=== PATIENT | male | born 1955 | race Caucasian/White ===

== ENCOUNTER → 2016-06-05 | Outpatient (CLI) | payer MEDICARE, OTHER ==
--- NOTE | 2016-06-05 10:20 | XR ---
EXAMINATION TYPE: XR KUB DATE OF EXAM: 06/05/2016 10:09 AM HISTORY: Pain Comparison: 09/09/2011 Single KUB is submitted for interpretation. Findings: Right renal calculi: None Visualized. Right ureteral calculi: None Visualized. Left renal calculi: None Visualized. Left ureteral calculi: None Visualized. Pelvic calcifications: Several left pelvic calcifications likely reflect phlebolith formation. Corre late clinically. Bowel gas pattern is unremarkable. No free air. No mass effects. IMPRESSION: 1. No definite renal or ureteral calculus identified at this time.
== END | disposition home or self-care (01) ==
LOC: RADXRMAIN 09:49
PROVIDERS: ATTEND Urology
DX: R31.9 Hematuria, unspecified (principal); Z87.442 Personal history of urinary calculi
CPT/HCPCS: 74000

== ENCOUNTER → 2016-07-02 | Outpatient (CLI) | payer MEDICARE, OTHER ==
--- NOTE | 2016-07-02 08:50 | CT ---
EXAMINATION TYPE: CT urogram wo/w con DATE OF EXAM: 07/02/2016 8:17 AM COMPARISON: NONE HISTORY: hematuria, history of renal stone CT DLP: 3153 mGycm CONTRAST: Performed and without and with IV Contrast, patient injected with 100 mL of Omnipaque 300. CT Urography was performed with unenhanced followed by enhanced images of the kidneys, ureters and ur inary bladder. Delayed images were obtained. 3d reconstruction was perfromed at a separate work sta tion. FINDINGS: KIDNEYS/BLADDER: No hydronephrosis. Small 3 mm nonobstructing calculus lower pole left kidney. Right kidney is free of renal calculi. No disctinct renal mass. Urinary bladder is grossly unremarkable. LUNG BASES-: No visible nodule. No infiltrate. LIVER/GB: No calcified gallstones. No space occupying hepatic lesion. Biliary tree is of normal ca liber. PANCREAS: No inflammation. No distinct mass. SPLEEN: No splenic enlargement. No lesion seen. ADRENALS: No nodule. No thickening. BOWEL: Normal appendix. Normal bowel caliber. No inflammation. Scattered sigmoid diverticulosis wit hout diverticulitis. GENITAL ORGANS: No gross abnormality. LYMPH NODES: No greater than 1cm abdominal or pelvic lymph nodes are appreciated. AORTA: No significant abnormality. OSSEOUS STRUCTURES: No significant abnormality is seen. OTHER: No significant additional abnormality is seen. IMPRESSION: 1. Nonobstructing small left renal calculus. No additional findings attributable to the kidneys, uret ers or bladder.
== END | disposition home or self-care (01) ==
LOC: RADCTMAIN 07:00
PROVIDERS: ATTEND Urology
DX: N20.0 Calculus of kidney (principal)
CPT/HCPCS: 74178; 74400; Q9967

== ENCOUNTER → 2017-07-09 | Outpatient (CLI) | payer MEDICARE, OTHER ==
[2017-07-09 12:20] LABS: Appearance,BF Cloudy
[2017-07-09 12:26] LABS: RBC, Body Fluid 985 /uL
[2017-07-09 12:27] LABS: Nucleated Cells, Body Fluid 790 /uL
[2017-07-09 12:31] LABS: Mononuclear WBC,Body Fluid 93 %; Polynuclear WBC,Body Fluid 7 %; Total Cells Counted,Body Fluid 100
== END | disposition home or self-care (01) ==
LOC: LABWHC1 09:33
PROVIDERS: ATTEND Orthopaedic Surgery
DX: Z47.1 Aftercare following joint replacement surgery (principal); M67.864 Other specified disorders of tendon, left knee; M25.462 Effusion, left knee
CPT/HCPCS: 87070; 87075; 87205; 89050; 89060

== ENCOUNTER → 2017-09-09 | Outpatient (CLI) | payer MEDICARE, OTHER ==
[2017-09-09 10:16] LABS: Appearance,Urine Clear (Clear); Basophils % (A) 0 %; Bilirubin,Urine Negative (Negative); Blood,Urine Negative (Negative); Color,Urine Yellow; Eosinophils % (A) 1 %; Glucose,Urine (UA) Negative (Negative); HCT 39.8 % (39.0-53.0); HGB 13.3 gm/dL (13.0-17.5); Ketones,Urine Negative (Negative); Leukocyte Esterase,Urine Negative (Negative); Lymphocytes # (A) 1.5 k/uL (1.0-4.8); Lymphocytes % (A) 22 %; MCH 31.1 pg (25.0-35.0); MCHC 33.4 g/dL (31.0-37.0); Mean Platelet Volume 6.5; Monocytes # (A) 0.3 k/uL (0-1.0); Monocytes % (A) 5 %; Neutrophils # (A) 4.8 k/uL (1.3-7.7); Neutrophils % (A) 71 %; Nitrite,Urine Negative (Negative); PH, Urine 5.5 (5.0-8.0); Platelet Count 162 k/uL (150-450); Protein,Urine Negative (Negative); RBC 4.28 m/uL (4.30-5.90); RDW 13.9 % (11.5-15.5); Specific Gravity,Urine 1.021 (1.001-1.035); Urobilinogen,Urine <2.0 mg/dL (<2.0); WBC 6.8 k/uL (3.8-10.6)
[2017-09-09 10:26] LABS: Partial Thromboplastin Time 23.4 sec (22.0-30.0)
[2017-09-09 10:30] LABS: Anion Gap 11 mmol/L; Blood Urea Nitrogen 26 mg/dL (9-20); Carbon Dioxide 26 mmol/L (22-30); Chloride 105 mmol/L (98-107); Glucose 94 mg/dL (74-99); Potassium 4.1 mmol/L (3.5-5.1); Sodium 142 mmol/L (137-145)
--- NOTE | 2017-09-09 16:22 | XR ---
EXAMINATION TYPE: XR chest 2V DATE OF EXAM: 09/09/2017 COMPARISON: NONE INDICATION: Presurgical clearance TECHNIQUE: Frontal and lateral views of the chest are obtained. FINDINGS: The heart size is normal. The pulmonary vasculature is normal. The lungs are clear. IMPRESSION: 1. No acute pulmonary process.
== END | disposition home or self-care (01) ==
LOC: LABPAT 09:28
PROVIDERS: ATTEND Orthopaedic Surgery Orthopaedic Surgery of the Spine
DX: Z01.818 Encounter for other preprocedural examination (principal); Z01.812 Encounter for preprocedural laboratory examination; M51.26 Other intervertebral disc displacement, lumbar region
CPT/HCPCS: 36415; 71046; 80048; 81003; 85025; 85610; 85730

== ENCOUNTER 2017-09-13 12:40 | Day surgery (SDC) | payer MEDICARE, OTHER ==
[2017-09-06 14:06] VITALS: BMI 27.9
[~2017-09-13 12:40] MED LIST: DEXAMETHASONE SOD PHOSPHATE 10 MG/ML 1 ML VIAL IV ONE; HYDROmorphone 0.5 MG/0.5 ML SYRINGE IVP PRN; LACTATED RINGERS 1,000 ML IV SCH; LIDOCAINE 1% 20 ML VIAL (10MG/ML) FOR IV START INTRADERMA PRN; MIDAZOLAM 2 MG/2 ML VIAL IV PRN; ONDANSETRON 4 MG/2 ML VIAL IVP ONE; ONDANSETRON 4 MG/2 ML VIAL IVP PRN; SCOPOLAMINE 1.5MG/72HR PATCH TRANSDERM ONE; fentaNYL (PF) 50 MCG/ML 2 ML AMP IV PRN
[2017-09-13 13:14] VITALS: RESP 16
[2017-09-13] MEDS: LACTATED RINGERS 1,000 ML IV SCH ×2 (13:30→16:01)
[2017-09-13] MEDS ORDERED: HYDROmorphone (PF) 1 MG/ML ONE (14:17)
[2017-09-13] MEDS ORDERED: fentaNYL (PF) 50 MCG/ML 2 ML AMP ONE (14:17)
[2017-09-13] MEDS ORDERED: SUCCINYLCHOLINE CHLORIDE 100 MG/5 ML SYR IV ONE (14:17)
[2017-09-13] MEDS ORDERED: PROPOFOL 10 MG/ML 20 ML VIAL IV ONE (14:17)
[2017-09-13] MEDS ORDERED: LIDOCAINE 1% INJ 10MG/ML (20 ML MDV) ONE (14:17)
[2017-09-13] MEDS ORDERED: PHENYLEPHRINE-0.9% NACL SYG 1 MG/10 ML SYRINGE ONE (14:17)
[2017-09-13] MEDS ORDERED: MIDAZOLAM 2 MG/2 ML VIAL ONE (14:17)
[2017-09-13] MEDS ORDERED: BACITRACIN 50,000 UNIT, POLYMYXIN B 500,000 UNIT in SODIUM CHLORIDE 0.9% IRRIGATIO 1,00... IRRIGATION ONE (14:30)
[2017-09-13] MEDS ORDERED: LIDOCAINE 0.5%-EPI 1:200,000 50 ML VIAL SQ ONE (15:01)
[2017-09-13] MEDS ORDERED: methylPREDNISolone ACETATE 80 MG/ML 1 ML VIAL MISCELLANE ONE ×2 (15:01→15:17)
[2017-09-13] MEDS ORDERED: GELATIN SPONGE,ABSORB (SMALL) 1 EACH SPONGE TOPICAL ONE (15:01)
[2017-09-13] MEDS ORDERED: THROMBIN (BOVINE) 5,000 UNIT VIAL TOPICAL ONE (15:02)
[2017-09-13] MEDS ORDERED: SODIUM CHLORIDE 0.9% 50 ML with ceFAZolin 2,000 MG IV ONE ×2 (15:04)
[2017-09-13] MEDS ORDERED: DIAZEPAM 5 MG TAB PO PRN (15:36)
[2017-09-13] MEDS ORDERED: BENZOCAINE/MENTHOL LOZENG 1 EACH LOZENGE MUCOUS MEM PRN (15:36)
[2017-09-13] MEDS ORDERED: HYDROmorphone 0.5 MG/0.5 ML SYRINGE IVP PRN ×2 (15:36)
[2017-09-13] MEDS ORDERED: IBUPROFEN 600 MG TAB PO PRN (15:37)
[2017-09-13] MEDS ORDERED: HYDROcodone/APAP 5-325MG 1 EACH TAB PO PRN (15:37)
[2017-09-13] MEDS ORDERED: ONDANSETRON 4 MG/2 ML VIAL IVP PRN (15:37)
[2017-09-13] MEDS ORDERED: SODIUM CHLORIDE 0.9% 1,000 ML IV SCH (15:45)
--- NOTE | 2017-09-13 15:47 | FL ---
Fluoroscopy INDICATION: Pain FINDINGS: Fluoroscopy time: 4 seconds. Images obtained: 2. IMPRESSIONS: 1. Documentation of fluoroscopy.
--- NOTE | 2017-09-13 15:47 | P.OP ---
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 Viera Coffee Blender: Joby ZULETA Anesthesia: General anesthesia Estimated blood loss: approximately 20 mL Complications: None apparent Components implanted: none Disposition: To recovery room in good stable condition. OPERATIVE INDICATIONS The patient has been having issues in their lower back and lower extremities. The patient has been through conservative treatment. he had right lower extremity radiculopathy with a correlated with stenosis at the L2-3 neural foramen. His imaging showed evidence of a disc herniation at L2-3 on the right with extruded fragment. He is not having any prolonged benefit despite aggressive conservative treatment and continues to to have issues over and L3 distribution his right lower extremity. We discussed various treatment options including surgery, and the patient wishes to proceed with surgery We discussed the risk, patient's alternatives and benefits of surgery including but not limited to, risk of bleeding risk of infection, risk of need for further surgery , risk of decreased, loss of motion, loss of function, nerve damage, paralysis, heart attack, blindness and . OPERATIVE SUMMARY After discussing all the risks, patient alternatives and benefits at length, the patient elected to proceed with surgical intervention, signed informed consent, and presented for their procedure. The patient was seen and examined in the preoperative holding area and the surgical site was marked. The patient was given antibiotics and brought to the operating room. The patient was sedated and intubated by anesthesia in standard fashion. The patient was positioned on to the operating room table in a prone position on the appropriate frame which was well-padded and well molded. We were careful to pad any bony prominences and pressure points. We were careful to maintain the patient's cervical spine and good neutral alignment and position throughout. The patient was prepped and draped in a normal standard fashion. An appropriate timeout and keystone protocol performed. We were able to proceed with the surgery. Fluoroscopy was utilized to establish the appropriate level at L2-3 . The local wound area was infiltrated with local anesthetic. An incision was made at the midline longitudinally over the appropriate levels at L2-3 . Dissection was taken down subcutaneously to the level of the fascia which was split midline. Dissection was taken over the lamina. Intraoperative fluoroscopy was taken which showed a marker at the appropriate level at L2-3 . With the appropriate level positively confirmed, we were able to proceed with laminectomy. The wound was copiously irrigated and suctioned dry as had been done periodically throughout the case. I performed a laminectomy with a combination of curettes and a high-speed bur and Kerrison rongeurs. A small medial facetectomy was performed again further access. A partial foraminotomy was also performed. Portions of the ligamentum flavum were taken down to expose the dura and traversing nerve root. there is thickening of the capsule at L2-3 causing significant foraminal encroachment. This combined with the thickened ligamentum flavum was taken down to get good decompression at the neural foramen along with partial foraminotomy open up the neural foramen. There was some motion or along the facet joint at L3 on the right which apparently were presented a lysis. Portions of the facet joint were removed while trying to preserve as much of the facet as possible to maintain stability at L2-3 on the right. I was able get good decompression while attempting to preserve stability. I was able to mobilize the traversing nerve root and gain access to the disc space. Note was made of some disc bulging at the space but no specific herniation. There is some dilation of the blood vessel at the area which was cauterized with bipolar cauterization. The nerve root was freely mobile with no evidence of extruded disc fragment I decided not to go into the disc itself. I decided to preserve the disc structure. There were no extruded fragments noted. There is no evidence of dural tear or leak. Good hemostasis maintained. The wound was copiously irrigated and suctioned dry. Good decompression and discectomy was noted. We were able to proceed with closure. The fascia was closed for a watertight closure. The subcuticular tissue was closed with absorbable suture. The wound was cleaned and dried and dressed with the appropriate dressing. The drapes were broken down. The patient was gently rolled back onto their hospital bed being careful to maintain their cervical spine and good neutral alignment and position. They were woken up by anesthesia, extubated, and brought to the recovery room in good stable condition. The patient will be admitted to the hospital for observation and for appropriate postoperative care, medical management and monitoring. We will continue to follow them closely about the postoperative course.
[2017-09-13 16:50] VITALS: TEMP 97.8
[2017-09-13 19:05] VITALS: BP 108/64; PULSE 76
[2017-09-14] MEDS ORDERED: ceFAZolin IN SWFI 2 GM/20 ML SYRINGE IVP SCH
[2017-09-14] MEDS ORDERED: LEVOTHYROXINE 50 MCG TAB PO SCH (06:30)
== END 2017-09-13 19:20 | disposition home or self-care (01) ==
LOC: OR 12:40 → 5MS5E 15:39 → OR 19:20
PROVIDERS: ATTEND Orthopaedic Surgery Orthopaedic Surgery of the Spine
DX: M48.061 Spinal stenosis, lumbar region without neurogenic claudication (principal); M47.26 Other spondylosis with radiculopathy, lumbar region; M51.16 Intervertebral disc disorders with radiculopathy, lumbar region; E03.9 Hypothyroidism, unspecified; N28.9 Disorder of kidney and ureter, unspecified; Z79.890 Hormone replacement therapy; Z79.891 Long term (current) use of opiate analgesic; Z79.1 Long term (current) use of non-steroidal anti-inflammatories (NSAID); Z79.899 Other long term (current) drug therapy; Z88.6 Allergy status to analgesic agent
CPT/HCPCS: 72020; 63047; J1040; J2405; J0690; 86850; 86900; 86901

== ENCOUNTER → 2017-11-01 | Outpatient (CLI) | payer MEDICARE, OTHER ==
--- NOTE | 2017-11-01 14:58 | NM ---
EXAMINATION TYPE: NM bone 3 phase DATE OF EXAM: 11/01/2017 COMPARISON: NONE HISTORY: Left knee pain for 5 months with fluid drained 3-5 times over last 5 months. History of left knee joint replacement June 14, 2012. Pain, effusion, reactive synovitis all per order. Triple phase bone scintigraphy was performed following the injection of 24.7 mCi Tc 99m MDP. Immedia te images and 4 hours post injection images acquired. FINDINGS: Arterial and soft tissue phase images show increased radiotracer uptake to left knee joint versus opp osite right knee joint particularly the distal femoral component medial aspect. Delayed phase images show asymmetric increased radiotracer uptake surrounding lucent area or metallic prosthesis throughou t the distal femur and proximal tibia. IMPRESSION: Three-phase scintigraphic increase uptake surrounding the left knee prosthesis most promi nent on first 2 phases involving the medial distal femoral component. Periprosthetic infection cannot be excluded.
== END | disposition home or self-care (01) ==
LOC: RADNMMAIN 10:34
PROVIDERS: ATTEND Orthopaedic Surgery
DX: R93.7 Abnormal findings on diagnostic imaging of other parts of musculoskeletal system (principal); Z96.652 Presence of left artificial knee joint
CPT/HCPCS: 78315; A9503

== ENCOUNTER 2018-03-17 11:04 | Emergency (ER) | payer MEDICARE, OTHER ==
[2018-03-17 11:14] VITALS: RESP 16
[2018-03-17] MEDS ORDERED: HYDROcodone/APAP 7.5-325MG 1 EACH TAB PO ONE (12:10)
--- NOTE | 2018-03-17 12:11 | ED ---
Lower Extremity Injury HPI - General Chief Complaint: Extremity Injury, Lower Stated Complaint: left knee pain Time Seen by Provider: 03/17/18 11:23 Source: patient, RN notes reviewed Mode of arrival: ambulatory Limitations: no limitations - History of Present Illness Initial Comments: 62-year-old male presents emergency Department chief complaint of severe left knee pain. Patient states that he had a knee replacement in [address] Ramon. Patient is currently followed by Dr. Cee. He states he was in office one week ago for knee swelling and which they drained his knee. He states the pain is now intensified states that he cannot put any weight on his left knee. Patient states that it is slightly red increased warmth. Patient states his pain with movement also. Patient denies any paresthesias no injury today. He states that feels like his knees going to give out. - Related Data Home Medications Medication Instructions Recorded Confirmed Naproxen Sodium [Aleve] 440 mg PO DAILY PRN 03/17/18 03/17/18 Allergies Allergy/AdvReac Type Severity Reaction Status Date / Time aspirin Allergy Unknown Rash/Hives Verified 03/17/18 11:58 Review of Systems ROS Statement: Those systems with pertinent positive or pertinent negative responses have been documented in the HPI. ROS Other: All systems not noted in ROS Statement are negative. Past Medical History Past Medical History: Deep Vein Thrombosis (DVT), Osteoarthritis (OA), Thyroid Disorder Additional Past Medical History / Comment(s): HERNIATED DISC L2 and L3, hx kidney stones History of Any Multi-Drug Resistant Organisms: None Reported Past Surgical History: Back Surgery, Hernia Repair, Joint Replacement Additional Past Surgical History / Comment(s): LEFT KNEE REPLACEMENT, rt foot hammertoe 2nd digit, FER INGUINAL HERNIAS Past Anesthesia/Blood Transfusion Reactions: Previous Problems w/ Anesthesia Additional Past Anesthesia/Blood Transfusion Reaction / Comment(s): dif waking up Past Psychological History: No Psychological Hx Reported Smoking Status: Never smoker Past Alcohol Use History: Occasional Past Drug Use History: None Reported - Past Family History Mother Family Medical History: Cancer Brother(s) Family Medical History: Cancer General Exam Limitations: no limitations General appearance: alert, in no apparent distress Head exam: Present: atraumatic, normocephalic, normal inspection Eye exam: Present: normal appearance, PERRL, EOMI. Absent: scleral icterus, conjunctival injection, periorbital swelling Respiratory exam: Present: normal lung sounds bilaterally. Absent: respiratory distress, wheezes, rales, rhonchi, stridor Cardiovascular Exam: Present: regular rate, normal rhythm, normal heart sounds. Absent: systolic murmur, diastolic murmur, rubs, gallop, clicks Extremities exam: Present: other (Left knee pain with range of motion, neurovascular intact, moderate swelling, mild erythema increased warmth with palpation the left knee) Course Vital Signs 03/17/18 11:08 Temperature 98.1 F Pulse Rate 97 Respiratory 16 Rate Blood Pressure 132/77 O2 Sat by Pulse 96 Oximetry Medical Decision Making - Medical Decision Making 62-year-old male presents for left knee pain. Patient had recent arthrocentesis. Patient has had increased pain and swelling. Patient does have large joint effusion. Case discussed with on-call orthopedics. They recommend patient follow-up in the morning. There is no clear evidence for infection at this time. It was considered given that he's had recent joint aspiration. Patient has appointment 8:30. Patient we given pain medication for tonight return parameters were discussed. - Lab Data Result diagrams: 03/17/18 13:01 03/17/18 13:01 Lab Results 03/17/18 03/17/18 03/17/18 Range/Units 13: 13:01 13:01 WBC 4.1 (3.8-10.6) k/uL RBC 4.53 (4.30-5.90) m/uL Hgb 14.0 (13.0-17.5) gm/dL Hct 42.3 (39.0-53.0) % MCV 93.5 (80.0-100.0) fL MCH 30.9 (25.0-35.0) pg MCHC 33.1 (31.0-37.0) g/dL RDW 13.3 (11.5-15.5) % Plt Count 153 (150-450) k/uL Neutrophils % 55 % Lymphocytes % 31 % Monocytes % 7 % Eosinophils % 3 % Basophils % 0 % Neutrophils # 2.3 (1.3-7.7) k/uL Lymphocytes # 1.3 (1.0-4.8) k/uL Monocytes # 0.3 (0-1.0) k/uL Eosinophils # 0.1 (0-0.7) k/uL Basophils # 0.0 (0-0.2) k/uL ESR (0-15) mm/hr Sodium 140 (137-145) mmol/L Potassium 4.7 (3.5-5.1) mmol/L Chloride 108 H (98-107) mmol/L Carbon Dioxide 23 (22-30) mmol/L Anion Gap 9 mmol/L BUN 21 H (9-20) mg/dL Creatinine 1.21 (0.66-1.25) mg/dL Est GFR (CKD-EPI)AfAm 75 (>60 ml/min/1.73 sqM) Est GFR (CKD-EPI)NonAf 64 (>60 ml/min/1.73 sqM) Glucose 92 (74-99) mg/dL Plasma Lactic Acid Chuy 0.8 (0.7-2.0) mmol/L Uric Acid 5.4 (3.5-8.5) mg/dL Calcium 9.1 (8.4-10.2) mg/dL Total Bilirubin 0.5 (0.2-1.3) mg/dL AST 27 (17-59) U/L ALT 32 (21-72) U/L Alkaline Phosphatase 44 (38-126) U/L C-Reactive Protein 5.6 (<10.0) mg/L Total Protein 6.8 (6.3-8.2) g/dL Albumin 3.8 (3.5-5.0) g/dL 03/17/18 Range/Units 13:57 WBC (3.8-10.6) k/uL RBC (4.30-5.90) m/uL Hgb (13.0-17.5) gm/dL Hct (39.0-53.0) % MCV (80.0-100.0) fL MCH (25.0-35.0) pg MCHC (31.0-37.0) g/dL RDW (11.5-15.5) % Plt Count (150-450) k/uL Neutrophils % % Lymphocytes % % Monocytes % % Eosinophils % % Basophils % % Neutrophils # (1.3-7.7) k/uL Lymphocytes # (1.0-4.8) k/uL Monocytes # (0-1.0) k/uL Eosinophils # (0-0.7) k/uL Basophils # (0-0.2) k/uL ESR 14 (0-15) mm/hr Sodium (137-145) mmol/L Potassium (3.5-5.1) mmol/L Chloride (98-107) mmol/L Carbon Dioxide (22-30) mmol/L Anion Gap mmol/L BUN (9-20) mg/dL Creatinine (0.66-1.25) mg/dL Est GFR (CKD-EPI)AfAm (>60 ml/min/1.73 sqM) Est GFR (CKD-EPI)NonAf (>60 ml/min/1.73 sqM) Glucose (74-99) mg/dL Plasma Lactic Acid Chuy (0.7-2.0) mmol/L Uric Acid (3.5-8.5) mg/dL Calcium (8.4-10.2) mg/dL Total Bilirubin (0.2-1.3) mg/dL AST (17-59) U/L ALT (21-72) U/L Alkaline Phosphatase (38-126) U/L C-Reactive Protein (<10.0) mg/L Total Protein (6.3-8.2) g/dL Albumin (3.5-5.0) g/dL Disposition Clinical Impression: Effusion of left knee joint Disposition: HOME SELF-CARE Condition: Stable Instructions: Knee Pain (ED) Additional Instructions: Please return to the Emergency Department if symptoms worsen or any other concerns. Is patient prescribed a controlled substance at d/c from ED?: No Referrals: Miko Murguia Jr, DO [Primary Care Provider] - 1-2 days Derick Cee DO [Doctor of Osteopathic Medicine] - 1-2 days Time of Disposition: 16:09
--- NOTE | 2018-03-17 13:02 | XR ---
EXAMINATION TYPE: XR knee complete LT DATE OF EXAM: 03/17/2018 CLINICAL HISTORY: Pain and swelling, history of fluid removed 8 days ago TECHNIQUE: Three views of the left knee are obtained. COMPARISON: Left knee x-ray June 14, 2012. FINDINGS: There is no acute fracture/dislocation evident in left knee. Metallic artifact from the ar throplasty is redemonstrated. No suspicious new surrounding lucency is seen. Soft tissue density sup rapatellar bursa is consistent with recurrent large joint effusion. Posterior vascular calcification is appreciated. IMPRESSION: There is recurrent large suprapatellar joint effusion suspected.
[2018-03-17 13:30] LABS: Basophils % (A) 0 %; Eosinophils # (A) 0.1 k/uL (0-0.7); Eosinophils % (A) 3 %; HCT 42.3 % (39.0-53.0); Lymphocytes # (A) 1.3 k/uL (1.0-4.8); Lymphocytes % (A) 31 %; MCH 30.9 pg (25.0-35.0); MCHC 33.1 g/dL (31.0-37.0); MCV 93.5 fL (80.0-100.0); Monocytes # (A) 0.3 k/uL (0-1.0); Monocytes % (A) 7 %; Neutrophils # (A) 2.3 k/uL (1.3-7.7); Neutrophils % (A) 55 %; Platelet Count 153 k/uL (150-450); RBC 4.53 m/uL (4.30-5.90); RDW 13.3 % (11.5-15.5); WBC 4.1 k/uL (3.8-10.6)
[2018-03-17 13:40] LABS: Albumin 3.8 g/dL (3.5-5.0); C Reactive Protein 5.6 mg/L (<10.0); Calcium 9.1 mg/dL (8.4-10.2); Potassium 4.7 mmol/L (3.5-5.1); Total Bilirubin 0.5 mg/dL (0.2-1.3); Total Protein 6.8 g/dL (6.3-8.2); Uric Acid 5.4 mg/dL (3.5-8.5)
[2018-03-17 16:28] VITALS: BP 122/87; PULSE 91; TEMP 97.6
== END 2018-03-17 16:28 | disposition home or self-care (01) ==
LOC: EC 11:04
DX: M25.462 Effusion, left knee (principal); M19.90 Unspecified osteoarthritis, unspecified site; Z88.6 Allergy status to analgesic agent; Z96.652 Presence of left artificial knee joint; Z86.718 Personal history of other venous thrombosis and embolism
CPT/HCPCS: 36415; 80053; 83605; 84550; 85025; 85652; 86140; 87040; 99283

== ENCOUNTER → 2018-06-02 | Outpatient (CLI) | payer MEDICARE, OTHER ==
[2018-06-02 16:10] LABS: Appearance,Urine Clear (Clear); Bilirubin,Urine Negative (Negative); Blood,Urine Negative (Negative); Color,Urine Yellow; Glucose,Urine (UA) Negative (Negative); Ketones,Urine Negative (Negative); Leukocyte Esterase,Urine Negative (Negative); Nitrite,Urine Negative (Negative); Protein,Urine Negative (Negative); Specific Gravity,Urine 1.017 (1.001-1.035); Urobilinogen,Urine <2.0 mg/dL (<2.0)
== END | disposition home or self-care (01) ==
LOC: LABPAT 15:39
PROVIDERS: ATTEND Orthopaedic Surgery
DX: Z01.818 Encounter for other preprocedural examination (principal); Z01.812 Encounter for preprocedural laboratory examination; M17.12 Unilateral primary osteoarthritis, left knee
CPT/HCPCS: 81003; 87070; 93005

== ENCOUNTER → 2018-06-08 | Outpatient (CLI) | payer MEDICARE, OTHER ==
[2018-06-08 17:42] LABS: Anion Gap 8 mmol/L; Blood Urea Nitrogen 22 mg/dL (9-20); Carbon Dioxide 26 mmol/L (22-30); Chloride 104 mmol/L (98-107); Potassium 4.8 mmol/L (3.5-5.1); Sodium 138 mmol/L (137-145)
== END ==
LOC: LABPAT 16:06
PROVIDERS: ATTEND Orthopaedic Surgery
DX: Z01.812 Encounter for preprocedural laboratory examination (principal)
CPT/HCPCS: 36415; 80051; 82565; 84520

== ENCOUNTER 2018-06-13 10:20 | Inpatient (IN) | payer MEDICARE, OTHER ==
[2018-06-02 08:23] VITALS: BMI 28.3
[~2018-06-13 10:20] MED LIST changes: +ACETAMINOPHEN TAB 500 MG TAB PO ONE; -DEXAMETHASONE SOD PHOSPHATE 10 MG/ML 1 ML VIAL IV ONE; -LACTATED RINGERS 1,000 ML IV SCH; +MELOXICAM 7.5 MG TAB PO ONE; -MIDAZOLAM 2 MG/2 ML VIAL IV PRN; -ONDANSETRON 4 MG/2 ML VIAL IVP PRN; -SCOPOLAMINE 1.5MG/72HR PATCH TRANSDERM ONE; +TRANEXAMIC ACID 1,000 MG in SODIUM CHLORIDE 0.9% 100 ML IVPB ONE; +VANCOMYCIN 1,500 MG in SODIUM CHLORIDE 0.9% 250 ML IVPB ONE; -fentaNYL (PF) 50 MCG/ML 2 ML AMP IV PRN
[2018-06-13] MEDS ORDERED: ROPIVACAINE 246.25 MG, EPINEPHrine 0.5 MG, KETOROLAC 30 MG, cloNIDine HCL/PF 80 MCG, WA... MISCELLANE ONE ×5 (10:46)
[2018-06-13] MEDS: LACTATED RINGERS 1,000 ML IV SCH (10:54)
[2018-06-13] MEDS ORDERED: DEXAMETHASONE SOD PHOS (MDV) 100 MG/10 ML VIAL IVP ONE (10:55)
[2018-06-13] MEDS ORDERED: MIDAZOLAM 2 MG/2 ML VIAL IV ONE (11:08)
[2018-06-13] MEDS: fentaNYL (PF) 50 MCG/ML 2 ML AMP IV ONE ×3 (11:08→16:17)
[2018-06-13] MEDS ORDERED: ROPIVACAINE 1,100 MG, SODIUM CHLORIDE 0.9% 500 ML 330 ML MISCELLANE PRN ×2 (11:34)
--- NOTE | 2018-06-13 11:36 | P.ONQ ---
Anesthesiology Proc Note - PNB - Peripheral Nerve Block Performed Left Adductor Canal Infusion Time Out Performed: Yes Procedure Start Time: 11:08 Indication: Acute Post-Operative Pain Specifically requested for management of pain by DrRodríguez: Derick Cee Sedation Type: Sedate with meaningful contact maintained Preparation: Sterile Prep Position: Supine Catheter Depth at Skin (cm): 6 Catheter: Indwelling Needle Types: Other (see comment) (Pajunk) Needle Size: 100mm (4") Needle Gauge: 18 Technique: Ultrasound Injectate: 0.5% Ropivacaine (see comment for volume) (20cc) Blood Aspirated: No Pain Paresthesia on Injection Noted: No Resistance on Injection: Normal Events: Uneventful and Well Tolerated
[2018-06-13] MEDS ORDERED: hydrOXYzine PAMOATE 25 MG CAP PO PRN (11:59)
[2018-06-13] MEDS ORDERED: ONDANSETRON 4 MG/2 ML VIAL IVP PRN (11:59)
[2018-06-13] MEDS ORDERED: MAGNESIUM HYDROXIDE 2,400 MG/10 ML CUP PO PRN (11:59)
[2018-06-13] MEDS ORDERED: NALOXONE 0.4 MG/ML 1 ML VIAL IV PRN (11:59)
[2018-06-13] MEDS ORDERED: NA PHOS,M-B/NA PHOS,DI-BA 133 ML ENEMA RECTAL PRN (11:59)
[2018-06-13] MEDS ORDERED: HYDROmorphone 1 MG/ML 1 ML SYRINGE IVP PRN (11:59)
[2018-06-13] MEDS ORDERED: HYDROcodone/APAP 5-325MG 1 EACH TAB PO PRN (11:59)
[2018-06-13] MEDS ORDERED: HYDROmorphone 0.5 MG/0.5 ML SYRINGE IVP PRN ×2 (11:59)
[2018-06-13] MEDS ORDERED: BISACODYL 10 MG SUPP RECTAL PRN (11:59)
[2018-06-13] MEDS ORDERED: DIAZEPAM 5 MG TAB PO PRN (11:59)
[2018-06-13] MEDS ORDERED: fentaNYL (PF) 50 MCG/ML 2 ML AMP ONE (13:04)
[2018-06-13] MEDS ORDERED: TRANEXAMIC ACID 1,000 MG/10 ML VIAL ONE (13:04)
[2018-06-13] MEDS ORDERED: SODIUM CHLORIDE 0.9% 100 ML BAG ONE (13:04)
[2018-06-13] MEDS ORDERED: LIDOCAINE 1% INJ 10MG/ML (20 ML MDV) ONE (13:04)
[2018-06-13] MEDS ORDERED: SUCCINYLCHOLINE CHLORIDE 100 MG/5 ML SYR IV ONE (13:04)
[2018-06-13] MEDS ORDERED: MIDAZOLAM 2 MG/2 ML VIAL ONE (13:04)
[2018-06-13] MEDS ORDERED: KETAMINE 10 MG/ML 20 ML VIAL ONE (13:04)
[2018-06-13] MEDS ORDERED: PROPOFOL 10 MG/ML 20 ML VIAL IV ONE (13:04)
[2018-06-13] MEDS ORDERED: ceFAZolin 3,000 MG in SODIUM CHLORIDE 0.9% IRRIGATIO 3,000 ML IRRIGATION ONE (13:53)
[2018-06-13] MEDS ORDERED: LACTATED RINGERS 1,000 ML IV ONE ×2 (14:28)
--- NOTE | 2018-06-13 16:14 | XR ---
EXAMINATION TYPE: XR knee limited LT DATE OF EXAM: 06/13/2018 CLINICAL HISTORY: Postoperative evaluation Two views of the left knee are submitted. Identified are changes of total knee arthroplasty with fem oral and tibial components appearing well seated. Postsurgical soft tissue changes are noted. Align ment is anatomic.
--- NOTE | 2018-06-13 16:53 | P.OP ---
Date of Procedure: 06/13/18 Preoperative Diagnosis: Loosening tibial component left total knee arthroplasty Postoperative Diagnosis: Loosening femoral component left total knee arthroplasty Procedure(s) Performed: Revision left total knee arthroplasty Implants: [employer] Oxinium constrained femoral component size 6, left [employer] Legion press-fit stem 16 mm x 160 mm Jul[employer] Legion 6 mm offset woodwork teacher Jul[employer] Legion posterior wedge, 10 mm 2 Jul[employer] Legion revision tibial baseplate size 6, left [employer] Legion press-fit stem 11 mm x 160 mm Jul[employer]hew size Amee II constrained articular insert, 11 mm, size 5-6 All components were cemented using [place] Simplex P with tobramycin 2 The articulation is Oxinium on polyethylene. Anesthesia: spinal Surgeon: Derick Cee Stave Cutter #1: Viri Ibanez Estimated Blood Loss (ml): 50 Pathology: other (Cultures 2. Frozen section) Condition: stable Disposition: PACU Indications for Procedure: This is a 62-year-old gentleman was at a prior left total knee arthroplasty proximally 3-4 years ago. He continues to have pain and swelling in his knee. Initial workup was negative for infection, but positive for possible loosening of his total knee prosthesis. After discussing the surgical and nonsurgical treatment options with him at length he wishes to proceed with a revision of his left total knee arthroplasty. Informed consent was obtained. Operative Findings: The operative findings are consistent with a grossly loose femoral component. Also, the initial results were negative for infection, as the frozen section was negative for acute inflammation. Description of Procedure: Patient was seen in the preoperative area consent was reviewed and operative site was marked with a skin marker. An adductor canal pain catheter was placed by anesthesia in the preoperative area. Patient was then brought to the operating room and given preoperative antibiotics intravenously. A spinal anesthetic was administered by the anesthesia department. A tourniquet was placed on the upper thigh and the lower extremity was prepped and draped in usual sterile fashion. A gram of transexamic acid was given. A universal timeout was then performed which confirmed the patient's name, surgical site, ALLERGIES, and consent. The lower extremity was then exsanguinated and tourniquet was inflated to 250 mmHg. A standard and anterior midline approach to the knee was performed. The skin and subcutaneous tissue was dissected down to the patellar tendon. A medial parapatellar arthrotomy was then performed. The knee was then extended, the patellar was everted, and the knee was again flexed. The knee was then cultured 2. A frozen section was obtained which was found to be negative for acute inflammation. The prosthesis was then evaluated and the tibial component was found to be grossly stable. The femoral component was found to be grossly loose, was easily removed by hand.. Using a small oscillating saw, the cement implant interface was disrupted and the femoral and tibial components were then removed without difficulty. Next, sequential reaming of the femoral canal was then performed by hand. The femur was then sized and the distal cutting block was then placed in the distal femur was then freshened with a cut. Next the 4-in-1 cutting block was then placed, and set for the appropriate rotation. Anterior posterior chamfer cuts were then performed as well as anterior posterior cuts. The trial femur was then placed with appropriate length stem. Next the box cutting guide was placed in the bone for the box was then reamed and removed. Femoral trial was then removed. Attention was then directed to the tibia. Sequential reaming of the tibial gricel l was then performed with appropriate size. The intramedullary tibial cutting guide was then placed the tibia was then freshened with a minimal resection. The tibia was then sized and the canal was prepared for the stem. The tibial trial was then placed and found to have a good fit. The femoral trial was then placed as well. Next, the insert trials were then sequentially used until the appropriate-sized insert was reached. Knee was able to fully extend and flex to 120 and was stable to varus and valgus and anterior posterior stresses throughout all range of motion. Trials were then removed. The cut surfaces of bone were then irrigated with pulsatile lavage. The posterior structures were injected with the ropivacaine solution. The knee was also irrigated with Irrisept solution. The components were then opened, the cement was mixed, and the components were then cemented in place. The cement was allowed to harden with the knee in full extension. While the cement was hardening, the remaining soft tissues were then injected with a ropivacaine solution, which consisted of 246.25 mg of ropivacaine, 0.5 mg of epinephrine, 30 mg of Toradol, 80 g of clonidine, and 48.45 mL of sterile water, for a total of 100 mL of fluid injected. After the cemented hardened. The tourniquet was released, and hemostasis was obtained. A second gram of transexamic acid was given. The knee was again irrigated. The knee was again taken through range of motion and found to be stable throughout all range of motion of 0-130, and the patella tracked normally. The fascia was then closed with #2 strata fix suture. The subcutaneous tissue was closed with 3-0 Vicryl and 3-0 strata fix. Dermabond glue was used for the skin and placed with the knee in flexion. The patient was placed in a sterile silver dressing. Patient was then transferred to recovery room in stable condition. The assistant principal MERLYN Fierro was required due the complexity surgery and the need for a skilled surgical product sales consultant. She assisted in positioning, draping, retraction, and closure of the wound.
[2018-06-13] MEDS: HYDROcodone/APAP 5-325MG 1 EACH TAB PO PRN (17:37)
[2018-06-13] MEDS: SODIUM CHLORIDE 0.9% 1,000 ML IV SCH (18:26)
[2018-06-13] MEDS: SENNOSIDES-DOCUSATE SODIUM 1 EACH TAB PO SCH (21:07)
[2018-06-13] MEDS ORDERED: VANCOMYCIN 1,500 MG in SODIUM CHLORIDE 0.9% 250 ML IVPB ONE (23:00)
[2018-06-14] MEDS: HYDROcodone/APAP 5-325MG 1 EACH TAB PO PRN ×3 (04:06→20:51)
[2018-06-14] MEDS: SODIUM CHLORIDE 0.9% 1,000 ML IV SCH ×2 (04:18→09:42)
[2018-06-14] MEDS: LACTATED RINGERS 1,000 ML IV SCH (05:48)
--- NOTE | 2018-06-14 07:12 | P.PN ---
Progress Note - Text Progress Note Date: 06/14/18 The patient is status post left adductor canal catheter placement. The catheter was placed for postoperative pain control, status post total [left Knee] arthroplasty. Ropivacaine 0.2% is infusing at[ continuous] mLs per hour. The patient has no complaints of left[ ] lower extremity numbness or weakness. Patient's VAS score is[ 4]-10. Assessment: Patient's adductor canal catheter is in place and working appropriately. Plan: continue infusion and adjust it as needed.
[2018-06-14 08:10] LABS: Basophils % (A) 0 %; Eosinophils # (A) 0.1 k/uL (0-0.7); Eosinophils % (A) 1 %; HCT 36.1 % (39.0-53.0); HGB 11.8 gm/dL (13.0-17.5); Lymphocytes # (A) 1.5 k/uL (1.0-4.8); Lymphocytes % (A) 18 %; MCH 31.1 pg (25.0-35.0); MCHC 32.7 g/dL (31.0-37.0); MCV 95.1 fL (80.0-100.0); Monocytes # (A) 0.5 k/uL (0-1.0); Monocytes % (A) 6 %; Neutrophils # (A) 6.5 k/uL (1.3-7.7); Neutrophils % (A) 75 %; Platelet Count 138 k/uL (150-450); RBC 3.79 m/uL (4.30-5.90); RDW 13.3 % (11.5-15.5); WBC 8.7 k/uL (3.8-10.6)
[2018-06-14] MEDS: RIVAROXABAN 10 MG TAB PO SCH (08:20)
--- NOTE | 2018-06-14 09:27 | P.PN ---
Subjective Progress Note Date: 06/14/18 This is a 62-year-old male who is status post revision left total knee arthroplasty. This is postoperative day #1. Patient is seen and evaluated at bedside with Dr. Derick Cee. Patient states that his pain is well controlled, but he has not worked with physical therapy yet. Patient denies any fever/chills, numbness, weakness, tingling, abdominal pain, shortness of breath or chest pain. Objective - Vital Signs Vital signs: Vital Signs Temp 97.6 F 06/14/18 08:04 Pulse 83 06/14/18 08:04 Resp 16 06/14/18 08:04 BP 105/65 06/14/18 08:04 Pulse Ox 95 06/14/18 08:04 Intake & Output 06/13/18 06/14/18 06/14/18 18:59 06:59 18:59 Intake Total 2050 Output Total 50 Balance 2000 Intake: IV 2050 Output: Estimated Blood Loss 50 Other: Voiding Method Toilet # Voids 2 - Exam Vital signs are stable. Patient is in no acute distress and is alert and oriented 3. Calf is soft and nontender to palpation. Dressing is clean, dry, and intact. Patient has full foot and ankle motion without pain or difficulty. Neurovascular status and circulatory status are intact. - Labs CBC & Chem 7: 06/14/18 07:40 Labs: Abnormal Lab Results - Last 24 Hours (Table) 06/14/18 Range/Units 07:40 RBC 3.79 L (4.30-5.90) m/uL Hgb 11.8 L (13.0-17.5) gm/dL Hct 36.1 L (39.0-53.0) % Plt Count 138 L (150-450) k/uL Microbiology - Last 24 Hours (Table) 06/13/18 14:00 Gram Stain - Preliminary Knee - Left Wound Culture - Preliminary 06/13/18 14:00 Gram Stain - Preliminary Knee - Left Wound Culture - Preliminary 06/13/18 14:00 Anaerobic Culture - Preliminary Knee - Left 06/13/18 14:00 Anaerobic Culture - Preliminary Knee - Left Assessment and Plan Assessment: Status post revision left total knee arthroplasty. History of DVT. Thyroid disorder. (1) Loose total knee arthroplasty Current Visit: Yes Status: Acute Code(s): T84.038A - MECHANICAL LOOSENING OF OTH INTERNAL PROSTHETIC JOINT, INIT; Z96.659 - PRESENCE OF UNSPECIFIED ARTIFICIAL KNEE JOINT SNOMED Code(s): 465875497 Plan: #1 Continue with routine postoperative care and pain control, leave dressing in place for ten days. #2 Anticoagulation with Xarelto. #3 Physical therapy and CPM today. #4 Appreciate input from medicine. #5 Awaiting discharge to rehab.
[2018-06-14] MEDS ORDERED: HYDROmorphone 2 MG TAB PO PRN ×2 (13:20)
[2018-06-14] MEDS ORDERED: HYDROmorphone 4 MG TABLET PO PRN (13:21)
--- NOTE | 2018-06-14 18:56 | P.CONS ---
History of Present Illness - Reason for Consult Consult date: 06/14/18 Medical management - Chief Complaint Pain arthritis knee - History of Present Illness Patient was admitted for elective left total knee arthroplasty Review of Systems Constitutional: Reports as per HPI Ears, nose, mouth and throat: Reports as per HPI Cardiovascular: Reports as per HPI Respiratory: Reports as per HPI Gastrointestinal: Reports as per HPI Genitourinary: Reports as per HPI Musculoskeletal: Reports shooting leg pain Integumentary: Reports as per HPI Neurological: Reports as per HPI Past Medical History Past Medical History: Deep Vein Thrombosis (DVT), Osteoarthritis (OA), Thyroid Disorder Additional Past Medical History / Comment(s): hx HERNIATED DISC L2 and L3, hx kidney stones, hammertoes, History of Any Multi-Drug Resistant Organisms: None Reported Past Surgical History: Back Surgery, Hernia Repair, Joint Replacement Additional Past Surgical History / Comment(s): LEFT KNEE REPLACEMENT, rt foot hammertoe 2nd digit, FER INGUINAL HERNIAS, laminectomy x 2 Past Anesthesia/Blood Transfusion Reactions: Previous Problems w/ Anesthesia Additional Past Anesthesia/Blood Transfusion Reaction / Comm: difficulty waking up with hernia surgery, dvt after back surgery Past Psychological History: No Psychological Hx Reported Smoking Status: Never smoker Past Alcohol Use History: Occasional Past Drug Use History: None Reported - Past Family History Mother Family Medical History: Cancer Additional Family Medical History / Comment(s): breast Brother(s) Family Medical History: Cancer Sister(s) Family Medical History: Cancer Additional Family Medical History / Comment(s): leukemia Medications and Allergies Home Medications Medication Instructions Recorded Confirmed Type Levothyroxine Sodium [Synthroid] 50 mcg PO DAILY 06/02/18 06/13/18 History Naproxen Sodium [Aleve] 220 mg PO Q12HR PRN 06/02/18 06/13/18 History Allergies Allergy/AdvReac Type Severity Reaction Status Date / Time aspirin Allergy Unknown Rash/Hives/ Verified 06/13/18 16:44 itching Physical Exam Osteopathic Statement: *. No significant issues noted on an osteopathic struc tural exam other than those noted in the History and Physical/Consult. Vitals: Vital Signs Temp Pulse Resp BP Pulse Ox 06/14/18 15:20 98.3 F 87 16 122/68 95 06/14/18 08:04 97.6 F 83 16 105/65 95 06/13/18 23:40 98.2 F 73 16 108/62 95 Intake and Output 06/14/18 06/14/18 06/14/18 06:59 14:59 22:59 Intake Total 600 Balance 600 Intake: Oral 600 Other: Voiding Method Toilet # Voids 2 2 General: [Patient awake, alert and oriented times 3. Patient in no acute distress.] HEENT: [PERRL. EOMI. No pharyngeal erythema or exudate.] Neck: [No adenopathy.] Cardiac: [Heart regular in rate and rhythm. No S3. No S4. No clicks, rubs. No murmur.] Lungs: [Clear to auscultation bilaterally.] Abdomen: [No mass. No organomegaly. Bowel sounds presnt and normoactive in all 4 quadrants.] Extremes: dressing left knee clean and dry : [] Musculoskeletal: [No joint erythema, edema or tenderness.] Skin: [No rash.] Neurologic: [No lateralizing deficits. CN II - XII grossly intact.] Lymphatic: [No adenopathy.] Results CBC & Chem 7: 06/14/18 07:40 Labs: Abnormal Lab Results - Last 24 Hours (Table) 06/14/18 Range/Units 07:40 RBC 3.79 L (4.30-5.90) m/uL Hgb 11.8 L (13.0-17.5) gm/dL Hct 36.1 L (39.0-53.0) % Plt Count 138 L (150-450) k/uL Microbiology - Last 24 Hours (Table) 06/13/18 14:00 Gram Stain - Preliminary Knee - Left Wound Culture - Preliminary 06/13/18 14:00 Gram Stain - Preliminary Knee - Left Wound Culture - Preliminary 06/13/18 14:00 Anaerobic Culture - Preliminary Knee - Left 06/13/18 14:00 Anaerobic Culture - Preliminary Knee - Left Assessment and Plan (1) Loose total knee arthroplasty Current Visit: Yes Status: Acute Code(s): T84.038A - MECHANICAL LOOSENING OF OTH INTERNAL PROSTHETIC JOINT, INIT; Z96.659 - PRESENCE OF UNSPECIFIED ARTIFICIAL KNEE JOINT SNOMED Code(s): 340991482 Plan: Status post left total knee Patient doing very well Pain management per orthopedic surgery We'll continue follow closely Time with Patient: Greater than 30
[2018-06-14] MEDS: SENNOSIDES-DOCUSATE SODIUM 1 EACH TAB PO SCH (20:52)
[2018-06-15] MEDS: HYDROcodone/APAP 5-325MG 1 EACH TAB PO PRN ×2 (02:20→08:21)
[2018-06-15] MEDS: LACTATED RINGERS 1,000 ML IV SCH (05:06)
[2018-06-15] MEDS: SODIUM CHLORIDE 0.9% 1,000 ML IV SCH ×2 (08:18→22:53)
[2018-06-15] MEDS: RIVAROXABAN 10 MG TAB PO SCH (08:20)
--- NOTE | 2018-06-15 09:21 | P.PN ---
Subjective Progress Note Date: 06/15/18 This is a 62-year-old male who is status post revision left total knee arthroplasty. This is postoperative day #2. Patient is seen and evaluated at bedside with Dr. Derick Cee. Patient states that his pain is well controlled and he has been up and walking with physical therapy. Patient denies any fever/chills, numbness, weakness, tingling, abdominal pain, shortness of breath or chest pain. Objective - Vital Signs Vital signs: Vital Signs Temp 99.2 F 06/15/18 07:35 Pulse 88 06/15/18 07:35 Resp 16 06/15/18 07:35 BP 102/68 06/15/18 07:35 Pulse Ox 94 L 06/15/18 07:35 Intake & Output 06/14/18 06/15/18 06/15/18 18:59 06:59 18:59 Intake Total 600 100 Balance 600 100 Intake: Oral 600 100 Other: Voiding Method Toilet Toilet # Voids 2 2 - Exam Vital signs are stable. Patient is in no acute distress and is alert and oriented 3. Calf is soft and nontender to palpation. Dressing is clean, dry, and intact. Patient has full foot and ankle motion without pain or difficulty. Neurovascular status and circulatory status are intact. - Labs CBC & Chem 7: 06/14/18 07:40 Labs: Microbiology - Last 24 Hours (Table) 06/13/18 14:00 Gram Stain - Preliminary Knee - Left Wound Culture - Preliminary 06/13/18 14:00 Gram Stain - Preliminary Knee - Left Wound Culture - Preliminary Assessment and Plan Assessment: Status post revision left total knee arthroplasty. History of DVT. Thyroid disorder. (1) Loose total knee arthroplasty Current Visit: Yes Status: Acute Code(s): T84.038A - MECHANICAL LOOSENING OF OTH INTERNAL PROSTHETIC JOINT, INIT; Z96.659 - PRESENCE OF UNSPECIFIED ARTIFICIAL KNEE JOINT SNOMED Code(s): 395300264 Plan: #1 Continue with routine postoperative care and pain control, leave dressing in place for ten days. #2 Anticoagulation with Xarelto. #3 Physical therapy and CPM today. #4 Appreciate input from medicine. #5 Anticipate discharge to rehab .
[2018-06-15] MEDS ORDERED: HYDROcodone/APAP 7.5-325MG 1 EACH TAB PO PRN (09:22)
--- NOTE | 2018-06-15 13:11 | P.PN ---
Subjective Progress Note Date: 06/15/18 Principal diagnosis: Left left total knee arthroplasty Patient is up in bed alert oriented 3 has been up walking and doing quite well plan at this time is to transfer to inpatient rehab I believe tomorrow Objective - Vital Signs Vital signs: Vital Signs Temp 99.2 F 06/15/18 07:35 Pulse 88 06/15/18 07:35 Resp 16 06/15/18 07:35 BP 102/68 06/15/18 07:35 Pulse Ox 94 L 06/15/18 07:35 Intake & Output 06/14/18 06/15/18 06/15/18 18:59 06:59 18:59 Intake Total 600 100 Balance 600 100 Intake: Oral 600 100 Other: Voiding Method Toilet Toilet # Voids 2 2 2 - Exam General: [Patient awake, alert and oriented times 3. Patient in no acute distress.] HEENT: [PERRL. EOMI. No pharyngeal erythema or exudate.] Neck: [No adenopathy.] Cardiac: [Heart regular in rate and rhythm. No S3. No S4. No clicks, rubs. No murmur.] Lungs: [Clear to auscultation bilaterally.] Abdomen: [No mass. No organomegaly. Bowel sounds presnt and normoactive in all 4 quadrants.] Extremes: Left knee dressing clean and dry patient moving quite well with femoral block intact : [] Musculoskeletal: [No joint erythema, edema or tenderness.] Skin: [No rash.] Neurologic: [No lateralizing deficits. CN II - XII grossly intact.] Lymphatic: [No adenopathy.] - Labs CBC & Chem 7: 06/14/18 07:40 Labs: Microbiology - Last 24 Hours (Table) 06/13/18 14:00 Gram Stain - Preliminary Knee - Left Wound Culture - Preliminary 06/13/18 14:00 Gram Stain - Preliminary Knee - Left Wound Culture - Preliminary Assessment and Plan (1) Loose total knee arthroplasty Current Visit: Yes Status: Acute Code(s): T84.038A - MECHANICAL LOOSENING OF OTH INTERNAL PROSTHETIC JOINT, INIT; Z96.659 - PRESENCE OF UNSPECIFIED ARTIFICIAL KNEE JOINT SNOMED Code(s): 873431863 Plan: Status post left total knee Patient doing very well Pain management per orthopedic surgery Patient moving to inpatient rehab tomorrow otherwise doing well Time with Patient: Less than 30
[2018-06-15] MEDS: LEVOTHYROXINE 50 MCG TAB PO SCH (13:16)
[2018-06-15] MEDS: HYDROcodone/APAP 7.5-325MG 1 EACH TAB PO PRN ×2 (15:58→22:52)
[2018-06-15] MEDS: SENNOSIDES-DOCUSATE SODIUM 1 EACH TAB PO SCH (22:52)
[2018-06-16] MEDS: LACTATED RINGERS 1,000 ML IV SCH (05:17)
[2018-06-16] MEDS: HYDROcodone/APAP 7.5-325MG 1 EACH TAB PO PRN ×2 (05:35→13:07)
[2018-06-16] MEDS: LEVOTHYROXINE 50 MCG TAB PO SCH (05:35)
[2018-06-16 08:00] VITALS: BP 109/64; PULSE 78; RESP 12; TEMP 98.7
[2018-06-16 08:24] LABS: Basophils % (A) 0 %; Eosinophils # (A) 0.1 k/uL (0-0.7); Eosinophils % (A) 2 %; HCT 33.1 % (39.0-53.0); Lymphocytes # (A) 0.9 k/uL (1.0-4.8); Lymphocytes % (A) 17 %; MCH 31.5 pg (25.0-35.0); MCHC 33.3 g/dL (31.0-37.0); MCV 94.6 fL (80.0-100.0); Mean Platelet Volume 6.5; Monocytes # (A) 0.4 k/uL (0-1.0); Monocytes % (A) 8 %; Neutrophils % (A) 72 %; Platelet Count 134 k/uL (150-450); RDW 13.2 % (11.5-15.5); WBC 5.6 k/uL (3.8-10.6)
--- NOTE | 2018-06-16 08:37 | P.DS ---
Providers Date of admission: 06/13/18 10:20 Expected date of discharge: 06/16/18 Attending physician: Derick Cee Consults: 06/13/18 11:59 Consult Physician Routine Consulting Provider: Miko Murguia Jr Consult Reason/Comments: medical management Do you want consulting provider notified?: Yes Primary care physician: Miko Murguia - Discharge Diagnosis(es) (1) Loose total knee arthroplasty Current Visit: Yes Status: Acute (2) S/P total knee arthroplasty Current Visit: Yes Status: Acute Hospital Course: This is a 62-year-old male with known history of increasing pain involving his left total knee arthroplasty. The patient presents for evaluation and was found to have suspected loosening of his previous left total knee arthroplasty. After discussion and consideration patient elects to proceed with revision total knee arthroplasty. The patient is seen preoperatively by Dr. Cee and medically cleared for surgery by their primary care physician. Patient is admitted to [facility] on 06/13/2018 for revision total knee arthroplasty. The procedures performed without complication or sequelae. The patient is doing well postoperatively. Labs and vital signs are stable on day of discharge. On day of discharge patient's knee incision is healing well. There is minimal erythema. There is no drainage noted at this time. There is minimal soft tissue swelling to the knee. Patient has full foot and ankle motion without difficulty or pain. Calf is soft and nontender to palpation. Neurovascular status to the left lower extremity is intact. Patient is discharged to rehab in good condition. Opioid start talking form is reviewed and signed at patient bedside. Please see med rec for accurate list of home medications. Plan - Discharge Summary Discharge Rx Participant: No New Discharge Prescriptions: New HYDROcodone/APAP 7.5-325MG [[place] 7.5-325] 1 - 2 tab PO Q6H PRN #56 tab PRN Reason: Pain Sennosides [Senokot] 1 tab PO BID #60 tablet Rivaroxaban [Xarelto] 10 mg PO DAILY #10 tab No Action Levothyroxine Sodium [Synthroid] 50 mcg PO DAILY Naproxen Sodium [Aleve] 220 mg PO Q12HR PRN PRN Reason: Pain Discharge Medication List Levothyroxine Sodium [Synthroid] 50 mcg PO DAILY 06/02/18 [History] Naproxen Sodium [Aleve] 220 mg PO Q12HR PRN 06/02/18 [History] HYDROcodone/APAP 7.5-325MG [[place] 7.5-325] 1 - 2 tab PO Q6H PRN #56 tab 06/16/18 [Rx] Rivaroxaban [Xarelto] 10 mg PO DAILY #10 tab 06/16/18 [Rx] Sennosides [Senokot] 1 tab PO BID #60 tablet 06/16/18 [Rx] Follow up Appointment(s)/Referral(s): Derick Cee DO [Doctor of Osteopathic Medicine] - 2 Weeks Ambulatory/Diagnostic Orders: Continuous Passive Motion (CPM) Machine [DME.AMB1] Time Frame: 3 Weeks, Location: None Selected Activity/Diet/Wound Care/Special Instructions: Weightbearing as tolerated with a walker. CPM 5-6h daily. Leave dressing intact. May be removed by home care nurse or by patient in 10 days. May shower with dressing on. Please follow up with [facility] and call with any questions or concerns, . Discharge Disposition: TRANSFER TO SNF/ECF
[2018-06-16] MEDS: RIVAROXABAN 10 MG TAB PO SCH (09:55)
== END 2018-06-16 13:30 | DRG 468 ==
LOC: 2ORMAIN 10:20 → 4SSUR 15:37
PROVIDERS: ADMIT Orthopaedic Surgery; ATTEND Orthopaedic Surgery
PROC: 0SPW0JZ Removal of Synthetic Substitute from Left Knee Joint, Tibial Surface, Open Approach (ICD-10-PCS; 2018-06-13)
PROC: 0SRW0J9 Replacement of Left Knee Joint, Tibial Surface with Synthetic Substitute, Cemented, Open Approach (ICD-10-PCS; 2018-06-13)
PROC: 0SRU0J9 Replacement of Left Knee Joint, Femoral Surface with Synthetic Substitute, Cemented, Open Approach (ICD-10-PCS; 2018-06-13)
PROC: 0SPU0JZ Removal of Synthetic Substitute from Left Knee Joint, Femoral Surface, Open Approach (ICD-10-PCS; principal; 2018-06-13 12:30)
DX: T84.033A Mechanical loosening of internal left knee prosthetic joint, initial encounter (principal); E03.9 Hypothyroidism, unspecified; N18.9 Chronic kidney disease, unspecified; M19.90 Unspecified osteoarthritis, unspecified site; H91.90 Unspecified hearing loss, unspecified ear; Z79.890 Hormone replacement therapy; Z87.442 Personal history of urinary calculi; Z86.718 Personal history of other venous thrombosis and embolism; Z88.6 Allergy status to analgesic agent; Z80.9 Family history of malignant neoplasm, unspecified; Z80.6 Family history of leukemia
CPT/HCPCS: 85025; 87070; 87075; 87205; 88305; 88331

== ENCOUNTER 2018-12-26 13:11 | Emergency (ER) | payer MEDICARE, OTHER ==
[2018-12-26 13:38] VITALS: BP 95/64; PULSE 105; RESP 18; TEMP 98
[2018-12-26] MEDS ORDERED: DIPH,PERTUS(ACELL)TETVAC-LF 0.5 ML VIAL IM ONE (13:54)
--- NOTE | 2018-12-26 14:05 | ED ---
General Adult HPI - General Chief complaint: Animal Bite Stated complaint: Dog Bite Time Seen by Provider: 12/26/18 13:43 Source: patient, RN notes reviewed Mode of arrival: ambulatory Limitations: no limitations - History of Present Illness Initial comments: Patient is a pleasant 63-year-old male presenting to the emergency department following a dog bite. The bite occurred 2 days ago while he was riding his bike. Dog came out from the house and bit him on provoked. Patient complains of some discomfort in the area. Patient did notice some erythema inferior to the site today. Patient states the area of erythema is more pruritic than painful. Patient is unclear if he could've also been bitten by a bug or not. Patient is unclear last tetanus immunization. Patient is aware over the houses to identify the animal. - Related Data Home Medications Medication Instructions Recorded Confirmed Levothyroxine Sodium [Synthroid] 50 mcg PO DAILY 06/02/18 06/13/18 Naproxen Sodium [Aleve] 220 mg PO Q12HR PRN 06/02/18 06/13/18 Previous Rx's Medication Instructions Recorded HYDROcodone/APAP 7.5-325MG [[place] 1 - 2 tab PO Q6H PRN #56 tab 06/16/18 7.5-325] Rivaroxaban [Xarelto] 10 mg PO DAILY #10 tab 06/16/18 Sennosides [Senokot] 1 tab PO BID #60 tablet 06/16/18 Amoxic-Pot Clav 875-125Mg 1 tab PO Q12HR #20 tablet 12/26/18 [Augmentin 875-125] Allergies Allergy/AdvReac Type Severity Reaction Status Date / Time aspirin Allergy Unknown Rash/Hives/ Verified 12/26/18 13:37 itching Review of Systems ROS Statement: Those systems with pertinent positive or pertinent negative responses have been documented in the HPI. ROS Other: All systems not noted in ROS Statement are negative. Constitutional: Denies: fever Eyes: Denies: eye pain ENT: Denies: ear pain Respiratory: Denies: cough Cardiovascular: Denies: chest pain Endocrine: Denies: fatigue Gastrointestinal: Denies: abdominal pain Genitourinary: Denies: dysuria Musculoskeletal: Denies: back pain Skin: Reports: as per HPI Neurological: Denies: weakness Past Medical History Past Medical History: Deep Vein Thrombosis (DVT), Osteoarthritis (OA), Thyroid Disorder Additional Past Medical History / Comment(s): hx HERNIATED DISC L2 and L3, hx kidney stones, hammertoes, History of Any Multi-Drug Resistant Organisms: MRSA Date of last positivie culture/infection: 2018 MDRO Source:: unknown Past Surgical History: Back Surgery, Hernia Repair, Joint Replacement, Orthopedic Surgery Additional Past Surgical History / Comment(s): LEFT KNEE REPLACEMENT, rt foot hammertoe 2nd digit, FER INGUINAL HERNIAS, laminectomy x 2 Past Anesthesia/Blood Transfusion Reactions: Previous Problems w/ Anesthesia Additional Past Anesthesia/Blood Transfusion Reaction / Comment(s): difficulty waking up with hernia surgery, dvt after back surgery Past Psychological History: No Psychological Hx Reported Smoking Status: Never smoker Past Alcohol Use History: Occasional Past Drug Use History: Marijuana - Past Family History Mother Family Medical History: Cancer Additional Family Medical History / Comment(s): breast Brother(s) Family Medical History: Cancer Sister(s) Family Medical History: Cancer Additional Family Medical History / Comment(s): leukemia General Exam Limitations: no limitations General appearance: alert, in no apparent distress Head exam: Present: normocephalic Eye exam: Present: normal appearance Neck exam: Present: normal inspection Respiratory exam: Present: normal lung sounds bilaterally Cardiovascular Exam: Present: regular rate, normal rhythm Expanded Peripheral pulses: 2+: Posterior Tibialis (L), Dorsalis Pedis (L) GI/Abdominal exam: Present: soft. Absent: tenderness Extremities exam: Present: other (Left posterior thigh with punctures and abrasions and ecchymosis. Area of ecchymosis is approximately 10-12 cm diameter. Approximately 6 cm below this there is a 3 cm diameter area of erythema. No tenderness.) Neurological exam: Present: alert Psychiatric exam: Present: normal affect, normal mood Skin exam: Present: erythema, other (see Extremities exam) Course Vital Signs 12/26/18 13:34 Temperature 98.0 F Pulse Rate 105 H Respiratory 18 Rate Blood Pressure 95/64 O2 Sat by Pulse 95 Oximetry Medical Decision Making - Medical Decision Making Area of erythema does appear to be more consistent with insect bite than infection. Nevertheless is felt to be safer to cover patient with antibiotics with recent dog bite. Patient is strongly made aware of need to follow-up with animal control and forms will be given. This is necessary to watch the animal and make sure there is no sign of rabies. Patient is aware of risk of rabies until the dog is well for 10 days. Disposition Clinical Impression: Dog bite Disposition: HOME SELF-CARE Condition: Stable Instructions (If sedation given, give patient instructions): Animal Bite (ED) Additional Instructions: Make sure animal control forms have been filled out. Please follow-up with animal control to ensure that the dog is not sick for at least 10 days. If this is not done you will need treatment and immunization for rabies. Please follow- up with primary care physician in the next couple of days for recheck. Return for fevers, increased pain, increased redness, worsening symptoms or other concerns. Prescription has been [facility] to [facility] Prescriptions: Amoxic-Pot Clav 875-125Mg [Augmentin 875-125] 1 tab PO Q12HR #20 tablet Is patient prescribed a controlled substance at d/c from ED?: No Referrals: Miko Murguia Jr, [Primary Care Provider] - 1-2 days Time of Disposition: 14:05
== END 2018-12-26 14:59 | disposition home or self-care (01) ==
LOC: EC 13:11
DX: S70.12XA Contusion of left thigh, initial encounter (principal); M19.90 Unspecified osteoarthritis, unspecified site; E07.9 Disorder of thyroid, unspecified; Z86.14 Personal history of Methicillin resistant Staphylococcus aureus infection; Z96.652 Presence of left artificial knee joint; Z79.1 Long term (current) use of non-steroidal anti-inflammatories (NSAID); Z79.890 Hormone replacement therapy; Z88.6 Allergy status to analgesic agent; Z23 Encounter for immunization; W54.0XXA Bitten by dog, initial encounter; Y93.55 Activity, bike riding
CPT/HCPCS: 90471; 90715; 99283

== ENCOUNTER 2019-01-01 08:26 | Inpatient (IN) | payer MEDICARE, OTHER ==
[2019-01-01] MEDS ORDERED: PIPERACILLIN-TAZOBACTAM 3.375 GM in SODIUM CHLORIDE 0.9% 100 ML IVPB STA (08:51)
[2019-01-01] MEDS ORDERED: SODIUM CHLORIDE 0.9% 500 ML 500 ML IV SCH (09:00)
--- NOTE | 2019-01-01 09:11 | ED ---
General Adult HPI - General Chief complaint: Recheck/Abnormal Lab/Rx Stated complaint: dog bite Time Seen by Provider: 01/01/19 08:40 Source: patient, RN notes reviewed Mode of arrival: ambulatory Limitations: no limitations - History of Present Illness Initial comments: Patient is a pleasant 63-year-old male presenting to the emergency department as follow-up from previous dog bite. Patient had episode occur close to week ago now. Patient was seen a couple days after and started on Augmentin. Patient states over the past couple of days he has had increased swelling and pain. Patient has noticed a little bit of warmth. This is at the area of dog bite. Patient did follow-up with animal control and they have contacted family regarding rabies and dog evaluation. Patient denies any fevers. Patient states discomfort is mild at rest however somewhat severe with touching. No history of similar problems previously. Patient did follow-up with his orthopedic doctor after ER visit last week however the symptoms had not yet started at that point. - Related Data Home Medications Medication Instructions Recorded Confirmed Levothyroxine Sodium [Synthroid] 50 mcg PO DAILY 06/02/18 01/01/19 Naproxen Sodium [Aleve] 220 mg PO Q12HR PRN 06/02/18 01/01/19 Previous Rx's Medication Instructions Recorded Amoxic-Pot Clav 875-125Mg 1 tab PO Q12HR #20 tablet 12/26/18 [Augmentin 875-125] Allergies Allergy/AdvReac Type Severity Reaction Status Date / Time aspirin Allergy Unknown Rash/Hives/ Verified 01/01/19 08:51 itching Review of Systems ROS Statement: Those systems with pertinent positive or pertinent negative responses have been documented in the HPI. ROS Other: All systems not noted in ROS Statement are negative. Constitutional: Denies: fever Eyes: Denies: eye pain ENT: Denies: ear pain Respiratory: Denies: cough Cardiovascular: Denies: chest pain Endocrine: Denies: fatigue Gastrointestinal: Denies: abdominal pain Genitourinary: Denies: dysuria Musculoskeletal: Denies: back pain Skin: Reports: as per HPI, rash Neurological: Denies: weakness Past Medical History Past Medical History: Deep Vein Thrombosis (DVT), Osteoarthritis (OA), Thyroid Disorder Additional Past Medical History / Comment(s): hx HERNIATED DISC L2 and L3, hx kidney stones, hammertoes, History of Any Multi-Drug Resistant Organisms: MRSA Date of last positivie culture/infection: 2019 MDRO Source:: unknown Past Surgical History: Back Surgery, Hernia Repair, Joint Replacement, Orthopedic Surgery Additional Past Surgical History / Comment(s): LEFT KNEE REPLACEMENT, rt foot hammertoe 2nd digit, FER INGUINAL HERNIAS, laminectomy x 2 Past Anesthesia/Blood Transfusion Reactions: Previous Problems w/ Anesthesia Additional Past Anesthesia/Blood Transfusion Reaction / Comment(s): difficulty waking up with hernia surgery, dvt after back surgery Past Psychological History: No Psychological Hx Reported Smoking Status: Never smoker Past Alcohol Use History: Occasional Past Drug Use History: Marijuana - Past Family History Mother Family Medical History: Cancer Additional Family Medical History / Comment(s): breast Brother(s) Family Medical History: Cancer Sister(s) Family Medical History: Cancer Additional Family Medical History / Comment(s): leukemia General Exam Limitations: no limitations General appearance: alert, in no apparent distress Head exam: Present: normocephalic Eye exam: Present: normal appearance Neck exam: Present: normal inspection Respiratory exam: Present: normal lung sounds bilaterally Cardiovascular Exam: Present: regular rate, normal rhythm GI/Abdominal exam: Present: soft. Absent: tenderness Extremities exam: Present: other (left posterior mid thigh with approximately 7 cm area of swelling and warmth and tenderness. There is some minimal erythema. There is puncture wound with erythema.) Neurological exam: Present: alert Psychiatric exam: Present: normal affect, normal mood Skin exam: Present: erythema Course Vital Signs 01/01/19 08:35 Temperature 98.0 F Pulse Rate 88 Respiratory 18 Rate Blood Pressure 108/73 O2 Sat by Pulse 96 Oximetry Medical Decision Making - Medical Decision Making case discussed in detail with Dr. Lambert who will admit with orthopedic and ID consult. patient updated. Area of involvement left posterior thigh appears to be cellulitic however there is some fluid collection and has an appearance that he could turn into an abscess within the next day or 2. Disposition Clinical Impression: Dog bite, Cellulitis Disposition: ADMITTED IP TO THIS HOSP Is patient prescribed a controlled substance at d/c from ED?: No Referrals: Miko Murguia Jr, DO [Primary Care Provider] - 1-2 days Decision Time: 09:30
[2019-01-01] MEDS ORDERED: NALOXONE 0.4 MG/ML 1 ML VIAL IV PRN (09:30)
[2019-01-01 09:43] LABS: ALT 17 U/L (21-72); AST 27 U/L (17-59); African American GFR (CKD) >90 (>60 ml/min/1.73 sqM); Albumin 3.8 g/dL (3.5-5.0); Alkaline Phosphatase 51 U/L (38-126); Anion Gap 10 mmol/L; Blood Urea Nitrogen 19 mg/dL (9-20); Calcium 8.8 mg/dL (8.4-10.2); Carbon Dioxide 21 mmol/L (22-30); Chloride 108 mmol/L (98-107); Glucose 153 mg/dL (74-99); Potassium 4.2 mmol/L (3.5-5.1); Sodium 139 mmol/L (137-145); Total Bilirubin 0.8 mg/dL (0.2-1.3)
[2019-01-01 09:47] LABS: Partial Thromboplastin Time 23.6 sec (22.0-30.0); Prothrombin Time 10.4 sec (9.0-12.0)
[2019-01-01 10:05] LABS: Basophils % (A) 1 %; Eosinophils # (A) 0.1 k/uL (0-0.7); Eosinophils % (A) 2 %; HCT 40.9 % (39.0-53.0); HGB 14.4 gm/dL (13.0-17.5); Lymphocytes # (A) 1.1 k/uL (1.0-4.8); Lymphocytes % (A) 19 %; MCH 31.6 pg (25.0-35.0); MCHC 35.1 g/dL (31.0-37.0); MCV 90.1 fL (80.0-100.0); Mean Platelet Volume 6.2; Monocytes # (A) 0.4 k/uL (0-1.0); Monocytes % (A) 6 %; Neutrophils # (A) 4.2 k/uL (1.3-7.7); Neutrophils % (A) 71 %; Platelet Count 149 k/uL (150-450); RBC 4.54 m/uL (4.30-5.90); RDW 13.6 % (11.5-15.5); WBC 5.9 k/uL (3.8-10.6)
[2019-01-01] MEDS: SODIUM CHLORIDE 0.9% 1,000 ML IV SCH ×2 (11:11→22:14)
[2019-01-01] MEDS ORDERED: VANCOMYCIN IV PER PHARMACY 1 EACH MISC MISCELLANE PRN (15:12)
--- NOTE | 2019-01-01 15:52 | US ---
EXAMINATION TYPE: US extremity nonvasc mass LT DATE OF EXAM: 01/01/2019 COMPARISON: NONE CLINICAL HISTORY: left post thigh swelling ?abscess. Patient bitten by dog. [place] of skin redness wi th central portion where dog bite noted on posterior left thigh; Assess for abscess Left posterior thigh US: complex fluid area = 5.0 x 4.8 x 1.3cm noted posterior to dog bite. IMPRESSION: There is elongated complex fluid collection in the area of concern consistent with an ab scess. Also consider hematoma.
[2019-01-01] MEDS ORDERED: PIPERACILLIN-TAZOBACTAM 3.375 GM in SODIUM CHLORIDE 0.9% 100 ML IVPB SCH (16:00)
[2019-01-01] MEDS: AMPICILLIN-SULBACTAM 3 GM in SODIUM CHLORIDE 0.9% 100 ML IVPB SCH ×2 (18:03→23:31)
[2019-01-01] MEDS: VANCOMYCIN 1,750 MG in SODIUM CHLORIDE 0.9% 500 ML 500 ML IVPB SCH (19:05)
[2019-01-01] MEDS ORDERED: HYDROcodone/APAP 5-325MG 1 EACH TAB PO PRN (21:57)
[2019-01-01] MEDS: HYDROcodone/APAP 5-325MG 1 EACH TAB PO PRN (22:10)
[2019-01-01] MEDS: MELATONIN 3 MG TABLET PO SCH (22:10)
--- NOTE | 2019-01-01 23:25 | P.CONS ---
History of Present Illness - Reason for Consult Consult date: 01/01/19 left thigh dog bite cellulitis Requesting physician: Miko Murguia Jr - Chief Complaint left thigh pain , swelling and redness x few days - History of Present Illness Patient is a 63-year-old male presenting to the ER at [facility] with worsening pain swelling redness to the left posterior thigh that has been getting worse for the last few days to week patient apparently did have a dog bite to the left posterior thigh more than a week ago patient subsequently was evaluated in this ER on December 26, 2018 and the patient was treated with oral Bactrim DS however the patient seen with the last 3 days the left posterior thigh area has become more painful pain described to be more of a throbbing dull aching and worse with pressure with intensity almost 7-8 out of 10 and no radiation the area has felt warm currently do not have any open area or any drainage patient did have some chills but denies high-grade fever with the symptoms and the patient was evaluated by the ER physician on arrival to the ER the patient has been afebrile the patient white count was normal as well patient has been started on Zosyn admitted to the hospital infectious disease was consulted for further recommendation regarding antibiotic therapy Review of Systems CONSTITUTIONAL: Positive for weakness. low grade Fever EYES: No complaint. ENT:No complaint. RESPIRATORY: No complaint. CARDIOVASCULAR: No complaint. GENITOURINARY: No complaint. GASTROINTESTINAL: No complaint. MUSCULOSKELETAL: as per history of present illness INTEGUMENTARY as per history of present illness PSYCHOLOGICAL: No complaint. ENDOCRINE: No complaint. NEUROLOGIC: No complaint. All systems: negative Constitutional: Denies chills, Denies fever Eyes: denies blurred vision, denies pain Ears, nose, mouth and throat: Denies headache, Denies sore throat Cardiovascular: Denies chest pain, Denies shortness of breath Respiratory: Denies cough Gastrointestinal: Denies abdominal pain, Denies diarrhea, Denies nausea, Denies vomiting Musculoskeletal: Denies myalgias Integumentary: Denies pruritus, Denies rash Neurological: Denies numbness, Denies weakness Psychiatric: Denies anxiety, Denies depression Endocrine: Denies fatigue, Denies weight change Past Medical History Past Medical History: Deep Vein Thrombosis (DVT), Osteoarthritis (OA), Thyroid Disorder Additional Past Medical History / Comment(s): hx HERNIATED DISC L2 and L3, hx kidney stones, hammertoes, History of Any Multi-Drug Resistant Organisms: MRSA Year Discovered:: 2019 MDRO Source:: unknown Past Surgical History: Back Surgery, Hernia Repair, Joint Replacement, Orthopedic Surgery Additional Past Surgical History / Comment(s): LEFT KNEE REPLACEMENT, rt foot hammertoe 2nd digit, FER INGUINAL HERNIAS, laminectomy x 2 Past Anesthesia/Blood Transfusion Reactions: Previous Problems w/ Anesthesia Additional Past Anesthesia/Blood Transfusion Reaction / Comm: difficulty waking up with hernia surgery, dvt after back surgery Past Psychological History: No Psychological Hx Reported Smoking Status: Never smoker Past Alcohol Use History: Occasional Past Drug Use History: Marijuana - Past Family History Mother Family Medical History: Cancer Additional Family Medical History / Comment(s): breast Brother(s) Family Medical History: Cancer Sister(s) Family Medical History: Cancer Additional Family Medical History / Comment(s): leukemia Medications and Allergies Home Medications Medication Instructions Recorded Confirmed Type Levothyroxine Sodium [Synthroid] 50 mcg PO DAILY 06/02/18 01/01/19 History Naproxen Sodium [Aleve] 220 mg PO Q12HR PRN 06/02/18 01/01/19 History Amoxic-Pot Clav 875-125Mg 1 tab PO Q12HR #20 tablet 12/26/18 01/01/19 Rx [Augmentin 875-125] Allergies Allergy/AdvReac Type Severity Reaction Status Date / Time aspirin Allergy Unknown Rash/Hives/ Verified 01/01/19 08:51 itching Physical Exam Vitals: Vital Signs Temp Pulse Resp BP Pulse Ox 01/01/19 08:35 98.0 F 88 18 108/73 96 Intake and Output 12/31/18 01/01/19 01/01/19 22:59 06:59 14:59 Other: Weight 97.522 kg GENERAL DESCRIPTION: Middle-aged male lying in bed, no distress. No tachypnea or accessory muscle of respiration use. HEENT: Shows Pallor , no scleral icterus. Oral mucous membrane is dry. No pharyngeal erythema or thrush NECK: Trachea central, no thyromegaly. LUNGS: Unlabored breathing. Clear to auscultation anteriorly. No wheeze or crackle. HEART: S1, S2, regular rate and rhythm. No loud murmur ABDOMEN: Soft, no tenderness , guarding or rigidity, no organomegaly EXTREMITIES: left posterior thigh with area of flatulence, warm and tender to touch SKIN: No rash, no masses palpable. NEUROLOGICAL: The patient is awake, alert, oriented x3, mood and affect normal. Results CBC & Chem 7: 01/01/19 09:05 01/01/19 09:05 Labs: Abnormal Lab Results - Last 24 Hours (Table) 01/01/19 01/01/19 Range/Units 09:05 09:05 Plt Count 149 L (150-450) k/uL Chloride 108 H (98-107) mmol/L Carbon Dioxide 21 L (22-30) mmol/L Glucose 153 H (74-99) mg/dL ALT 17 L (21-72) U/L Assessment and Plan Assessment: Patient presented to the hospital with right posterior thigh pain swelling redness in this patient who did have a negative of fluctuation on the left posterior thigh which is warm and tender to touch with concern for an abscess failing outpatient oral Augmentin therapy with concern for possible gram- positive skin brendon of the patient (1) Abscess of left thigh Current Visit: Yes Status: Acute Code(s): L02.416 - CUTANEOUS ABSCESS OF LEFT LOWER LIMB SNOMED Code(s): 87133587923659576 (2) Dog bite Current Visit: Yes Status: Acute Code(s): W54.0XXA - BITTEN BY DOG, INITIAL ENCOUNTER SNOMED Code(s): 130470212 Plan: 1. We will obtain ultrasound of the left posterior thigh to confirm evidence of an abscess that may need to be drained surgically with the fluid sent for cultures both aerobic and anaerobic 2- discontinue Zosyn 3-start the patient Unasyn 3 g every 6 hours and vancomycin pharmacy to dose with target trough 15 on watching his kidney function and Vanco trough closely We will follow on clinical condition and cultures to further adjust medication if needed Thank you for this consultation will follow this patient along with you Time with Patient: Greater than 30
[2019-01-02] MEDS: AMPICILLIN-SULBACTAM 3 GM in SODIUM CHLORIDE 0.9% 100 ML IVPB SCH ×4 (05:37→23:18)
[2019-01-02 07:00] LABS: Basophils % (A) 1 %; Eosinophils # (A) 0.2 k/uL (0-0.7); Eosinophils % (A) 4 %; HCT 37.5 % (39.0-53.0); HGB 12.7 gm/dL (13.0-17.5); Lymphocytes # (A) 1.4 k/uL (1.0-4.8); Lymphocytes % (A) 35 %; MCH 31.2 pg (25.0-35.0); MCHC 33.8 g/dL (31.0-37.0); MCV 92.1 fL (80.0-100.0); Mean Platelet Volume 6.2; Monocytes # (A) 0.3 k/uL (0-1.0); Monocytes % (A) 8 %; Neutrophils % (A) 51 %; Platelet Count 149 k/uL (150-450); RBC 4.07 m/uL (4.30-5.90); RDW 13.6 % (11.5-15.5); WBC 3.9 k/uL (3.8-10.6)
[2019-01-02] MEDS: VANCOMYCIN 1,750 MG in SODIUM CHLORIDE 0.9% 500 ML 500 ML IVPB SCH ×2 (07:00→18:16)
[2019-01-02] MEDS: SODIUM CHLORIDE 0.9% 1,000 ML IV SCH ×2 (07:01→20:13)
[2019-01-02 07:07] LABS: African American GFR (CKD) >90 (>60 ml/min/1.73 sqM); Anion Gap 5 mmol/L; Blood Urea Nitrogen 17 mg/dL (9-20); Calcium 8.4 mg/dL (8.4-10.2); Carbon Dioxide 29 mmol/L (22-30); Chloride 106 mmol/L (98-107); Glucose 96 mg/dL (74-99); Potassium 4.3 mmol/L (3.5-5.1); Sodium 140 mmol/L (137-145)
[2019-01-02 07:37] LABS: C Reactive Protein 26.1 mg/L (<10.0)
--- NOTE | 2019-01-02 08:36 | P.CNOR ---
<Joby Saunders - Last Filed: 01/02/19 08:33> History of Present Illness - HPI Consult date: 01/02/19 Requesting physician: Lalo Villalta Consult reason: other (Left posterior thigh abscess status post dog bite) History of present illness: The patient is a very pleasant 63-year-old male who is well-known to her p ractice who is seen and examined at bedside by Dr. Bud Viera and myself. Patient states 1 week ago after cutting the grass he was [place] the [place] when he was bitten by a pit bull. At that time he presented to the emergency department for evaluation. He was started on oral antibiotics. Since that time he has not had any improvement of the wound site. He states he was a bit on the left posterior thigh. Since that time he has been experiencing increased swelling, erythema, and pain at the left posterior thigh. He presented to the emergency department yesterday for further evaluation. He was admitted for cellulitis of the left lower extremity. He was seen and examined b y infectious disease who ordered an ultrasound of the left lower extremity which should show evidence of a fluid collection consistent with abscess. He has been started on vancomycin and Unasyn by infectious disease. He has been able to ambulate since his admittance to the hospital. He is currently nothing by mouth status in anticipation for surgical intervention. Patient does have a medical h istory which includes DVT, osteoarthritis, thyroid disorder, left total knee arthroplasty, and lumbar laminectomy. Past Medical History Past Medical History: Deep Vein Thrombosis (DVT), Osteoarthritis (OA), Thyroid Disorder Additional Past Medical History / Comment(s): hx HERNIATED DISC L2 and L3, hx kidney stones, hammertoes, History of Any Multi-Drug Resistant Organisms: MRSA Year Discovered:: 2019 MDRO Source:: unknown Past Surgical History: Back Surgery, Hernia Repair, Joint Replacement, Orthopedic Surgery Additional Past Surgical History / Comment(s): LEFT KNEE REPLACEMENT, rt foot hammertoe 2nd digit, FER INGUINAL HERNIAS, laminectomy x 2 Past Anesthesia/Blood Transfusion Reactions: Previous Problems w/ Anesthesia Additional Past Anesthesia/Blood Transfusion Reaction / Comm: difficulty waking up with hernia surgery, dvt after back surgery Past Psychological History: No Psychological Hx Reported Smoking Status: Never smoker Past Alcohol Use History: Occasional Past Drug Use History: Marijuana - Past Family History Mother Family Medical History: Cancer Additional Family Medical History / Comment(s): breast Brother(s) Family Medical History: Cancer Sister(s) Family Medical History: Cancer Additional Family Medical History / Comment(s): leukemia Medications and Allergies Home Medications Medication Instructions Recorded Confirmed Type Levothyroxine Sodium [Synthroid] 50 mcg PO DAILY 06/02/18 01/01/19 History Naproxen Sodium [Aleve] 220 mg PO Q12HR PRN 06/02/18 01/01/19 History Amoxic-Pot Clav 875-125Mg 1 tab PO Q12HR #20 tablet 12/26/18 01/01/19 Rx [Augmentin 875-125] Allergies Allergy/AdvReac Type Severity Reaction Status Date / Time aspirin Allergy Unknown Rash/Hives/ Verified 01/01/19 08:51 itching Physical Examination Physical exam: Patient is awake, alert, and oriented 3 Vital signs stable Good chest excursion with deep inspiration and expiration Examination of the left posterior thigh shows a large area of cellulitis covering the entire posterior left thigh Evidence of increased erythema measuring approximately 5 cm round around the site of the dog bite Evidence of a scabbed over wound from dog bite Pain with palpation around the dog bite site Evidence of increased swelling and fluid collection around the dog bite site Evidence of a well-healed incision over the left anterior knee Active range of motion of the left lower extremity without difficulty Evidence of a tattoo over the left lower extremity Neurovascularly intact Results Pertinent studies: Left lower extremity ultrasound: Complex fluid area measuring 5 cm x 4.8 cm x 1.3 cm the posterior thigh with elongated fluid complex collection consistent with abscess. Also consider hematoma - Labs Labs: Abnormal Lab Results - Last 24 Hours (Table) 01/01/19 01/01/19 01/02/19 Range/Units 09:05 09:05 06:27 RBC 4.07 L (4.30-5.90) m/uL Hgb 12.7 L (13.0-17.5) gm/dL Hct 37.5 L (39.0-53.0) % Plt Count 149 L 149 L (150-450) k/uL Chloride 108 H (98-107) mmol/L Carbon Dioxide 21 L (22-30) mmol/L Glucose 153 H (74-99) mg/dL ALT 17 L (21-72) U/L C-Reactive Protein (<10.0) mg/L 01/02/19 Range/Units 06:27 RBC (4.30-5.90) m/uL Hgb (13.0-17.5) gm/dL Hct (39.0-53.0) % Plt Count (150-450) k/uL Chloride (98-107) mmol/L Carbon Dioxide (22-30) mmol/L Glucose (74-99) mg/dL ALT (21-72) U/L C-Reactive Protein 26.1 H (<10.0) mg/L H & H 01/01/19 01/02/19 Range/Units 09:05 06:27 Hgb 14.4 12.7 L (13.0-17.5) gm/dL Hct 40.9 37.5 L (39.0-53.0) % Coagulation 01/01/19 Range/Units 09:05 INR 1.0 (<1.2) Result Diagrams: 01/02/19 06:27 01/02/19 06:27 Assessment and Plan Assessment: Assessment: Left posterior thigh abscess Left posterior thigh cellulitis Left thigh pain Status post dog bite 1 week ago History of DVT, osteoarthritis, and thyroid disorder Status post left total knee arthroplasty June 2018 History of previous lumbar laminectomy (1) History of total knee arthroplasty Current Visit: Yes Status: Acute Code(s): Z96.659 - PRESENCE OF UNSPECIFIED ARTIFICIAL KNEE JOINT SNOMED Code(s): 8742279083545 (2) History of lumbar laminectomy Current Visit: Yes Status: Acute Code(s): Z98.890 - OTHER SPECIFIED POSTPROCEDURAL STATES SNOMED Code(s): 79735922761052888 (3) History of osteoarthritis Current Visit: Yes Status: Acute Code(s): Z87.39 - PERSONAL HISTORY OF DISEASES OF THE MS SYS AND CONN TISS SNOMED Code(s): 451745003 (4) History of DVT (deep vein thrombosis) Current Visit: Yes Status: Acute Code(s): Z86.718 - PERSONAL HISTORY OF OTHER VENOUS THROMBOSIS AND EMBOLISM SNOMED Code(s): 577709929 (5) Thyroid disorder Current Visit: Yes Status: Acute Code(s): E07.9 - DISORDER OF THYROID, UNSPECIFIED SNOMED Code(s): 92719182 (6) Acute thigh pain Current Visit: Yes Status: Acute Code(s): M79.659 - PAIN IN UNSPECIFIED THIGH SNOMED Code(s): 92564730 (7) Abscess of left thigh Current Visit: Yes Status: Acute Code(s): L02.416 - CUTANEOUS ABSCESS OF LEF T LOWER LIMB SNOMED Code(s): 72956735703434688 (8) Cellulitis Current Visit: Yes Status: Acute Code(s): L03.90 - CELLULITIS, UNSPECIFIED SNOMED Code(s): 925401860 (9) Dog bite Current Visit: Yes Status: Acute Code(s): W54.0XXA - BITTEN BY DOG, INITIAL ENCOUNTER SNOMED Code(s): 791786156 Plan: Plan: 1. Patient has been discussed in detail with Dr. Bud Viera. After further discussion with the patient, physical examination of the patient, and reviewing of imaging, we will plan to proceed forward with surgical intervention this afternoon. Patient does have evidence of cellulitis with imaging showing evidence of fluid collection consistent with abscess at the left posterior thigh status post dog bite approximately one week ago. We will plan for incision and drainage of the left posterior thigh at the wound site. We'll also plan to obtain x-rays of the left femur for further evaluation prior to scheduled surgical intervention. We will plan to proceed forward with surgical intervention today, 01/02/2019. Patient is currently nothing by mouth status in anticipation for surgical intervention. Patient feels this is a good plan of care would like to proceed forward with incision and drainage. 2. Patient will continue to be seen and examined by Dr. Baker in infectious disease; continue with IV antibiotics as prescribed by infectious disease 3. Patient will continue to be seen and examined by medicine 4. Continue pain control with medications as prescribed Time with Patient: Greater than 30 (Including obtaining history, physical examination, reviewing of imaging, and dictation.) <Hari Viera - Last Filed: 01/02/19 12:45> Physical Examination Osteopathic Statement: *. No significant issues noted on an osteopathic structural exam other than those noted in the History and Physical/Consult. Results - Labs Labs: Abnormal Lab Results - Last 24 Hours (Table) 01/02/19 01/02/19 Range/Units 06:27 06:27 RBC 4.07 L (4.30-5.90) m/uL Hgb 12.7 L (13.0-17.5) gm/dL Hct 37.5 L (39.0-53.0) % Plt Count 149 L (150-450) k/uL C-Reactive Protein 26.1 H (<10.0) mg/L Microbiology - Last 24 Hours (Table) 01/01/19 09:05 Blood Culture - Preliminary Blood No Growth after 24 hours H & H 01/01/19 01/02/19 Range/Units 09:05 06:27 Hgb 14.4 12.7 L (13.0-17.5) gm/dL Hct 40.9 37.5 L (39.0-53.0) % Coagulation 01/01/19 Range/Units 09:05 INR 1.0 (<1.2) Result Diagrams: 01/02/19 06:27 01/02/19 06:27 Assessment and Plan Plan: The patient was seen and examined at bedside this morning. He has an obvious fluid collection at his left posterior thigh around the area his dog bite. The erythema has improved significantly with his antibiotics but there is a definite fluid collection and erythema over the area. I think he can do well with irrigation and debridement and excisional debridement of the abscess as well as left posterior thigh. I discussed the nature of the procedure with him at length answers questions best my ability discussed the risk of occasions alt ernatives and benefits and he is agreeable proceed with irrigation and debridement of his left thigh abscess. We'll plan to do this as soon as possible today.
--- NOTE | 2019-01-02 11:21 | XR ---
EXAMINATION TYPE: XR femur LT DATE OF EXAM: 01/02/2019 CLINICAL HISTORY: Dogbite and left femoral pain TECHNIQUE: Two views of the left femur are obtained. COMPARISON: None FINDINGS: There is no acute fracture or dislocation seen in the left femur. The left hip and knee j oints appear within normal limits. The left knee arthroplasty maintains normal alignment. There is so me surrounding heterotopic ossification. No periprosthetic lucency is seen. The overlying soft tissue appears unremarkable other than a small suprapatellar joint effusion. Extensive atherosclerosis is n oted. There are small calcifications along the superior acetabulum in the region of the hip labrum. IMPRESSION: There is no acute fracture or dislocation in the left femur. No radiopaque foreign body. No radiographic sequela of osteomyelitis.
[2019-01-02] MEDS ORDERED: IV FLUID CONTINUATION 1,000 ML IV ONE (11:49)
[2019-01-02] MEDS ORDERED: MIDAZOLAM 2 MG/2 ML VIAL ONE (12:09)
[2019-01-02] MEDS ORDERED: SUCCINYLCHOLINE CHLORIDE 100 MG/5 ML SYR IV ONE (12:09)
[2019-01-02] MEDS ORDERED: LIDOCAINE 1% INJ 10MG/ML (20 ML MDV) ONE (12:09)
[2019-01-02] MEDS ORDERED: PROPOFOL 10 MG/ML 20 ML VIAL IV ONE (12:09)
[2019-01-02] MEDS ORDERED: fentaNYL (PF) 50 MCG/ML 2 ML AMP ONE (12:09)
[2019-01-02] MEDS ORDERED: NAPROXEN 250 MG TAB PO PRN (12:52)
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
[2019-01-02] MEDS ORDERED: Acetaminophen-Codeine 300-30mg TAB PO PRN (12:53)
[2019-01-02] MEDS ORDERED: HYDROmorphone 1 MG/ML 1 ML SYRINGE IVP ONE ×2 (13:25→13:40)
--- NOTE | 2019-01-02 17:22 | P.HPIM ---
History of Present Illness H&P Date: 01/02/19 Chief Complaint: Dog bite cellulitis Is a 63-year-old male patient of my partner. Greater than week ago he had a dog bite, no seen in emergency room on December 26 and started on Bactrim DS. He reports that since of his pain is become increasing in severity along with wors ening redness and drainage from his wound.. . He came in the emergency room for the significant pain. Was diagnosed with a cellulitis and admitted. Review of Systems All systems: negative Past Medical History Past Medical History: Deep Vein Thrombosis (DVT), Osteoarthritis (OA), Thyroid Disorder Additional Past Medical History / Comment(s): hx HERNIATED DISC L2 and L3, hx kidney stones, hammertoes, History of Any Multi-Drug Resistant Organisms: MRSA Date of last positivie culture/infection: 2018 MDRO Source:: unknown Past Surgical History: Back Surgery, Hernia Repair, Joint Replacement, Orthopedic Surgery Additional Past Surgical History / Comment(s): LEFT KNEE REPLACEMENT, rt foot hammertoe 2nd digit, FER INGUINAL HERNIAS, laminectomy x 2 Past Anesthesia/Blood Transfusion Reactions: Previous Problems w/ Anesthesia Additional Past Anesthesia/Blood Transfusion Reaction / Comment(s): difficulty waking up with hernia surgery, dvt after back surgery Past Psychological History: No Psychological Hx Reported Smoking Status: Never smoker Past Alcohol Use History: Occasional Past Drug Use History: Marijuana - Past Family History Mother Family Medical History: Cancer Additional Family Medical History / Comment(s): breast Brother(s) Family Medical History: Cancer Sister(s) Family Medical History: Cancer Additional Family Medical History / Comment(s): leukemia Medications and Allergies Home Medications Medication Instructions Recorded Confirmed Type Levothyroxine Sodium [Synthroid] 50 mcg PO DAILY 06/02/18 01/01/19 History Naproxen Sodium [Aleve] 220 mg PO Q12HR PRN 06/02/18 01/01/19 History Amoxic-Pot Clav 875-125Mg 1 tab PO Q12HR #20 tablet 12/26/18 01/01/19 Rx [Augmentin 875-125] Allergies Allergy/AdvReac Type Severity Reaction Status Date / Time aspirin Allergy Unknown Rash/Hives/ Verified 01/01/19 08:51 itching Physical Exam Vitals: Vital Signs Temp Pulse Pulse Resp BP BP Pulse Ox 01/02/19 15:55 58 L 102/67 96 01/02/19 15:40 48 L 104/69 97 01/02/19 15:25 49 L 101/66 97 01/02/19 15:10 48 L 112/70 01/02/19 14:55 45 L 109/70 96 01/02/19 14:40 57 L 112/72 98 01/02/19 14:25 55 L 129/71 98 01/02/19 14:00 98.1 F 47 L 17 108/69 98 01/02/19 13:45 97.5 F L 48 L 16 102/63 96 01/02/19 13:30 49 L 16 92/58 96 01/02/19 13:15 51 L 16 106/68 99 01/02/19 13:00 58 L 16 107/62 97 01/02/19 12:48 97.5 F L 58 L 16 111/64 94 L 01/02/19 11:49 97.5 F L 52 L 16 122/74 98 01/02/19 07:00 97.7 F 42 L 14 105/64 95 01/02/19 03:37 20 01/02/19 01:30 97.6 F 53 L 19 93/58 95 01/02/19 00:19 20 01/01/19 19:30 20 01/01/19 19:27 97.6 F 57 L 20 105/65 93 L Intake and Output 01/02/19 01/02/19 01/02/19 06:59 14:59 22:59 Intake Total 450 600 Output Total 30 Balance 450 570 Intake: IV 600 Intake, IV Titration 450 Amount Sodium Chloride 0.9% 1, 450 000 ml @ 75 mls/hr IV . [id number] Rx#:[id number] Output: Estimated Blood Loss 30 Other: Voiding Method Toilet Toilet # Voids 2 Weight 97.522 kg GENERAL: Well-appearing, well-nourished and in no acute distress. HEAD: Atraumatic, normocephalic. EYES: Pupils equal round and reactive to light, extraocular movements intact, sc dahlia anicteric, conjunctiva are normal. ENT:nares patent, oropharynx clear without exudates. There is some erythema localized in the posterior pharynx. Moist mucous membranes. NECK: Normal range of motion, supple without lymphadenopathy or JVD, no thyromegaly LUNGS: Breath sounds clear to auscultation bilaterally and equal. No wheezes rales or rhonchi. HEART: Regular rate and rhythm without murmurs, rubs or gallops.S1S2 Normal ABDOMEN: Soft, nontender, normoactive bowel sounds. No guarding, no rebound. No masses appreciated. EXTREMITIES: Dressing in the left posterior thigh is clean dry and intact. NEUROLOGICAL: Cranial nerves II through XII grossly intact. Normal speech, normal gait. PSYCH: Normal mood, normal affect. SKIN: Warm, Dry, normal turgor, no rashes or lesions noted. Results CBC & Chem 7: 01/02/19 06:27 01/02/19 06:27 Labs: Abnormal Lab Results - Last 24 Hours (Table) 01/02/19 01/02/19 Range/Units 06:27 06:27 RBC 4.07 L (4.30-5.90) m/uL Hgb 12.7 L (13.0-17.5) gm/dL Hct 37.5 L (39.0-53.0) % Plt Count 149 L (150-450) k/uL C-Reactive Protein 26.1 H (<10.0) mg/L Microbiology - Last 24 Hours (Table) 01/01/19 09:05 Blood Culture - Preliminary Blood No Growth after 24 hours Thrombosis Risk Factor Assmnt - DVT/VTE Prophylaxis DVT/VTE Prophylaxis: Mechanical Prophylaxis ordered - Choose All That Apply Each Risk Factor Represents 2 Points: Age 61-74 years Thrombosis Risk Factor Assessment Total Risk Factor Score: 2 Thrombosis Risk Factor Assessment Level: Low Risk Assessment and Plan (1) Abscess of left thigh Current Visit: Yes Status: Acute Code(s): L02.416 - CUTANEOUS ABSCESS OF LEFT LOWER LIMB SNOMED Code(s): 88743084890654270 (2) Acute thigh pain Current Visit: Yes Status: Acute Code(s): M79.659 - PAIN IN UNSPECIFIED THIG H SNOMED Code(s): 64635120 (3) Cellulitis Current Visit: Yes Status: Acute Code(s): L03.90 - CELLULITIS, UNSPECIFIED SNOMED Code(s): 238027499 (4) Dog bite Current Visit: Yes Status: Acute Code(s): W54.0XXA - BITTEN BY DOG, INITIAL ENCOUNTER SNOMED Code(s): 692857904 (5) History of lumbar laminectomy Current Visit: Yes Status: Acute Code(s): Z98.890 - OTHER SPECIFIED POSTPROCEDURAL STATES SNOMED Code(s): 10943841922270958 (6) History of osteoarthritis Current Visit: Yes Status: Acute Code(s): Z87.39 - PERSONAL HISTORY OF DISEASES OF THE MS SYS AND CONN TISS SNOMED Code(s): 756119375 (7) Thyroid disorder Current Visit: Yes Status: Acute Code(s): E07.9 - DISORDER OF THYROID, UNSPECIFIED SNOMED Code(s): 35599894 Plan: Factious disease and orthopedics of vertigo in consult and their workups are in the chart. We'll await further recommendations and upcoming surgery with orthopedics for him along with the infectious disease antibiotic recommendations. Repeat labs in am, he'll be reevaluated next 24 hours.
[2019-01-02] MEDS ORDERED: BENZOCAINE/MENTHOL LOZENG 1 EACH LOZENGE MUCOUS MEM PRN (18:15)
[2019-01-02] MEDS: MELATONIN 3 MG TABLET PO SCH (20:11)
--- NOTE | 2019-01-02 23:55 | PN ---
PROGRESS NOTE DATE OF SERVICE: 01/02/2019 REASON FOR FOLLOWUP: Left thigh dog bite abscess. INTERVAL HISTORY: The patient is currently afebrile. The patient was taken to the OR early this afternoon. The patient is status post drainage of the left thigh abscess. Culture has been obtained which is currently pending. Patient tolerated the procedure. He was seen in the postoperative area recovering from his anesthesia. Denies any chest pain. No cough. No nausea, no vomiting. No abdominal pain or any worsening pain to the left thigh. PHYSICAL EXAMINATION: Blood pressure 112/66, pulse of 57, temperature of 97.8. He is 97% on room air. General description is a middle-aged male lying in bed in no distress. RESPIRATORY SYSTEM: Unlabored breathing. Clear to auscultation anteriorly. HEART: S1, S2. Regular rate and rhythm. ABDOMEN: Soft. No tenderness. Left leg is currently dressed up postoperatively. LABS: BUN of 17, creatinine 0.94. Hemoglobin is 12.7, white count 3.9. DIAGNOSTIC IMPRESSION AND PLAN: Patient with left thigh abscess, status post surgical drainage. We are waiting for the culture to finalize. Keep the patient on Unasyn and vancomycin, adjusting antibiotic further based on the culture report. Continue with supportive care. MMODL / IJN: [id number] /
[2019-01-03] MEDS: HYDROcodone/APAP 5-325MG 1 EACH TAB PO PRN (01:32)
[2019-01-03] MEDS: AMPICILLIN-SULBACTAM 3 GM in SODIUM CHLORIDE 0.9% 100 ML IVPB SCH ×3 (05:03→17:35)
[2019-01-03] MEDS: VANCOMYCIN 1,750 MG in SODIUM CHLORIDE 0.9% 500 ML 500 ML IVPB SCH ×2 (05:55→19:18)
[2019-01-03] MEDS: LEVOTHYROXINE 50 MCG TAB PO SCH (05:55)
[2019-01-03 06:33] LABS: Basophils % (A) 1 %; Eosinophils # (A) 0.1 k/uL (0-0.7); Eosinophils % (A) 2 %; Lymphocytes # (A) 1.6 k/uL (1.0-4.8); Lymphocytes % (A) 26 %; MCH 31.5 pg (25.0-35.0); MCHC 34.2 g/dL (31.0-37.0); MCV 92.1 fL (80.0-100.0); Mean Platelet Volume 6.4; Monocytes # (A) 0.4 k/uL (0-1.0); Monocytes % (A) 6 %; Neutrophils # (A) 3.9 k/uL (1.3-7.7); Neutrophils % (A) 64 %; Platelet Count 143 k/uL (150-450); RBC 4.12 m/uL (4.30-5.90); RDW 13.5 % (11.5-15.5); WBC 6.1 k/uL (3.8-10.6)
[2019-01-03 06:36] LABS: African American GFR (CKD) >90 (>60 ml/min/1.73 sqM); Anion Gap 7 mmol/L; Blood Urea Nitrogen 10 mg/dL (9-20); Calcium 8.6 mg/dL (8.4-10.2); Carbon Dioxide 28 mmol/L (22-30); Chloride 105 mmol/L (98-107); Glucose 91 mg/dL (74-99); Potassium 4.1 mmol/L (3.5-5.1); Sodium 140 mmol/L (137-145)
--- NOTE | 2019-01-03 14:29 | P.PN ---
Subjective This is a 63-year-old male patient of my partner. Greater than week ago he had a dog bite, no seen in emergency room on December 26 and started on Bactrim DS. He reports that since of his pain is become increasing in severity along with worsening redness and drainage from his wound.. . He came in the emergency room for the significant pain. Was diagnosed with a cellulitis and admitted. January 03, 2019: Patient is status post I&D of his left thigh abscess yesterday, Dr. Hopkins. He remains on Unasyn and vancomycin. Wound cultures are pending. He denies any chest pains, pressures, shortness of breath, nausea or vomiting. He otherwise feels okay other than some minor pain at the wound site. Objective - Vital Signs Vital signs: Vital Signs Temp 98.1 F 01/03/19 08:30 Pulse 74 01/03/19 08:30 Resp 16 01/03/19 08:30 BP 127/74 01/03/19 08:30 Pulse Ox 97 01/03/19 08:30 Intake & Output 01/02/19 01/03/19 01/03/19 18:59 06:59 18:59 Intake Total 600 480 200 Output Total 30 400 Balance 570 80 200 Weight 97.522 kg Intake: IV 600 Oral 480 200 Output: Urine 400 Estimated Blood Loss 30 Other: Voiding Method Toilet Toilet # Voids 2 1 - Exam GENERAL: Well-appearing, well-nourished and in no acute distress. NECK: Normal range of motion, supple without lymphadenopathy or JVD, no thyromegaly LUNGS: Breath sounds clear to auscultation bilaterally and equal. No wheezes rales or rhonchi. HEART: Regular rate and rhythm without murmurs, rubs or gallops.S1S2 Normal ABDOMEN: Soft, nontender, normoactive bowel sounds. No guarding, no rebound. No masses appreciated. EXTREMITIES: Dressing in the left posterior thigh is clean dry and intact.wound is suturesd with minimal drainage on dressing NEUROLOGICAL: Cranial nerves II through XII grossly intact. Normal speech, normal gait. PSYCH: Normal mood, normal affect. SKIN: Warm, Dry, normal turgor, no rashes or lesions noted. - Labs CBC & Chem 7: 01/03/19 06:02 01/03/19 06:02 Labs: Abnormal Lab Results - Last 24 Hours (Table) 01/03/19 Range/Units 06:02 RBC 4.12 L (4.30-5.90) m/uL Hct 38.0 L (39.0-53.0) % Plt Count 143 L (150-450) k/uL Microbiology - Last 24 Hours (Table) 01/01/19 09:05 Blood Culture - Preliminary Blood No Growth after 48 hours 01/02/19 11:51 Gram Stain - Preliminary Thigh - Left Wound Culture - Preliminary 01/02/19 11:51 Gram Stain - Preliminary Thigh - Left Wound Culture - Preliminary 01/02/19 11:51 Anaerobic Culture - Preliminary Thigh - Left 01/02/19 11:51 Anaerobic Culture - Preliminary Thigh - Left Assessment and Plan (1) Abscess of left thigh Current Visit: Yes Status: Acute Code(s): L02.416 - CUTANEOUS ABSCESS OF LEFT LOWER LIMB SNOMED Code(s): 85063595933830852 (2) Acute thigh pain Current Visit: Yes Status: Acute Code(s): M79.659 - PAIN IN UNSPECIFIED THIGH SNOMED Code(s): 77802171 (3) Cellulitis Current Visit: Yes Status: Acute Code(s): L03.90 - CELLULITIS, UNSPECIFIED SNOMED Code(s): 970652177 (4) Dog bite Current Visit: Yes Status: Acute Code(s): W54.0XXA - BITTEN BY DOG, INITIAL ENCOUNTER SNOMED Code(s): 193841075 (5) History of lumbar laminectomy Current Visit: Yes Status: Acute Code(s): Z98.890 - OTHER SPECIFIED POSTPROCEDURAL STATES SNOMED Code(s): 44773579970851039 (6) History of osteoarthritis Current Visit: Yes Status: Acute Code(s): Z87.39 - PERSONAL HISTORY OF DISEASES OF THE MS SYS AND CONN TISS SNOMED Code(s): 628864635 (7) Thyroid disorder Current Visit: Yes Status: Acute Code(s): E07.9 - DISORDER OF THYROID, UNSPECIFIED SNOMED Code(s): 28494711 Plan: We'll await further recommendations and upcoming surgery with orthopedics and the infectious disease antibiotic recommendations. Repeat labs in am, he'll be reevaluated next 24 hours.
[2019-01-03] MEDS ORDERED: VANCOMYCIN TROUGH DUE 1 EACH MISC MISCELLANE ONE (17:00)
[2019-01-03] MEDS: SODIUM CHLORIDE 0.9% 1,000 ML IV SCH (17:33)
[2019-01-03] MEDS: MELATONIN 3 MG TABLET PO SCH (21:53)
--- NOTE | 2019-01-03 23:08 | PN ---
PROGRESS NOTE DATE OF SERVICE: 01/03/2019 REASON FOR FOLLOWUP: Left thigh abscess. INTERVAL HISTORY: The patient is currently afebrile. The patient has been breathing comfortably. The patient denies having any chest pain or shortness of breath or cough. No worsening pain to the left thigh area and no diarrhea. PHYSICAL EXAMINATION: Blood pressure 116/67 with a pulse of 68, temperature 98.1. He is 95% on room air. General description is a middle-aged male lying in bed in no distress. RESPIRATORY SYSTEM: Unlabored breathing. Clear to auscultation anteriorly. HEART: S1, S2. Regular rate and rhythm. ABDOMEN: Soft. No tenderness. LABS: Cultures are currently pending. Vancomycin level therapeutic at 14.6. DIAGNOSTIC IMPRESSION AND PLAN: Patient with left thigh abscess from a dog bite, status post surgical drainage. We are waiting for the culture to finalize to determine his discharge antibiotics. Continue with Unasyn and vancomycin at this point. Continue with supportive care. MMODL / IJN: [id number] /
[2019-01-04] MEDS: AMPICILLIN-SULBACTAM 3 GM in SODIUM CHLORIDE 0.9% 100 ML IVPB SCH ×4 (00:18→17:24)
[2019-01-04] MEDS: LEVOTHYROXINE 50 MCG TAB PO SCH (05:17)
[2019-01-04] MEDS: SODIUM CHLORIDE 0.9% 1,000 ML IV SCH ×2 (05:21→17:24)
[2019-01-04] MEDS: VANCOMYCIN 1,750 MG in SODIUM CHLORIDE 0.9% 500 ML 500 ML IVPB SCH ×2 (06:03→19:09)
[2019-01-04 07:49] LABS: African American GFR (CKD) >90 (>60 ml/min/1.73 sqM); Anion Gap 11 mmol/L; Blood Urea Nitrogen 11 mg/dL (9-20); Calcium 8.7 mg/dL (8.4-10.2); Carbon Dioxide 21 mmol/L (22-30); Chloride 106 mmol/L (98-107); Glucose 95 mg/dL (74-99); Potassium 3.9 mmol/L (3.5-5.1); Sodium 138 mmol/L (137-145)
[2019-01-04 07:58] LABS: Basophils % (A) 1 %; Eosinophils # (A) 0.1 k/uL (0-0.7); Eosinophils % (A) 3 %; HCT 38.1 % (39.0-53.0); HGB 12.4 gm/dL (13.0-17.5); Lymphocytes # (A) 1.5 k/uL (1.0-4.8); Lymphocytes % (A) 32 %; MCH 31.1 pg (25.0-35.0); MCHC 32.6 g/dL (31.0-37.0); MCV 95.3 fL (80.0-100.0); Mean Platelet Volume 6.9; Monocytes # (A) 0.3 k/uL (0-1.0); Monocytes % (A) 7 %; Neutrophils # (A) 2.7 k/uL (1.3-7.7); Neutrophils % (A) 55 %; Platelet Count 147 k/uL (150-450); RDW 13.7 % (11.5-15.5); WBC 4.8 k/uL (3.8-10.6)
--- NOTE | 2019-01-04 14:22 | P.PN ---
Progress Note - Text Progress Note Date: 01/03/19 Patient is a very pleasant 63-year-old male well known to our practice who is seen and examined for follow evaluation in regards to his left posterior thigh. He is status post irrigation and debridement of left thigh abscess status post dog bite performed on 01/02/2019. Patient continues to be seen and examined by Dr. Baker in infectious disease. Patient continues to be on vancomycin and Unasyn IV per infectious disease. Patient continues with [place] 5 mg/325 mg as prescribed for pain control. He feels his leg pain is improving. He has been able to ambulate to the halls and the restroom without difficulty. He is eating and voiding without difficulty. He has no new complaints. Physical exam: Patient is awake, alert, and oriented 3 Vital signs stable Good chest excursion with deep inspiration and expiration Postoperative dressing remains intact over the left thigh Dressing over the site of the posterior thigh remains clean, dry, and intact Active range of motion of the left lower extremity without difficulty Evidence of a tattoo over the left lower extremity Neurovascularly intact. Assessment: Status post irrigation and debridement with excisional debridement of the new tissue left thigh abscess Status post dog bite Left thigh pain Left posterior thigh cellulitis History of DVT, osteoarthritis, and thyroid disorder Status post left total knee arthroplasty June 2018 History of previous lumbar laminectomy Plan: 1. We will continue with conservative treatment at this time in regards to his left posterior thigh. We not currently planning for further surgical intervention at his left posterior thigh. He currently has iodoform gauze in place at the wound site. We will continue to keep this gauze in place today with plans to remove it tomorrow, 01/04/2019. Patient may continue with Adaptic, 4 x 4, ABD, and Hollis wrap over the left thigh. Patient will continue to remain in the hospital pending culture results. Patient has been discussed in detail with infectious disease who is planning to prescribe antibiotic medications following culture results at the time of discharge. We will continue to follow the patient closely during his admission. Patient may continue to ambulate as tolerated on the left lower extremity. 2. Patient will continue to be seen by medicine and infectious disease; culture results are currently pending so that infectious disease and he prescribed appropriate antibiotic medications at discharge
--- NOTE | 2019-01-04 14:30 | P.PN ---
Progress Note - Text Progress Note Date: 01/04/19 Patient is a very pleasant 63-year-old male well known to our practice who is seen and examined for follow evaluation in regards to his left posterior thigh. He is status post irrigation and debridement of left thigh abscess status post dog bite performed on 01/02/2019. Patient continues to be seen and examined by Dr. Baker in infectious disease. He states today his dressing was removed by infectious disease and the iodoform gauze was removed. He currently has a 4 x 4 and tape dressing intact over the left posterior thigh. He states he is currently waiting for a different type of rope packing for his incision site per infectious disease. Patient continues to be on vancomycin and Unasyn IV per infectious disease. Patient continues with [place] 5 mg/325 mg as prescribed for pain control. He feels his leg pain continues to improve. He has been able to ambulate to the halls and the restroom without difficulty. He is eating and voiding without difficulty. He has no new complaints. He feels he is ready for discharge home. Physical exam: Patient is awake, alert, and oriented 3 Vital signs stable Good chest excursion with deep inspiration and expiration Dressing over the left posterior thigh is removed during physical examination 3 sutures remain intact over the wound site No active drainage from the wound site of the left posterior thigh. Examination of the left posterior thigh wound site shows improvement in terms of erythema and swelling Evidence of some induration approximately 5 cm round around the site of the left posterior thigh No significant pain with palpation of the left posterior thigh Dressing is reapplied over the posterior thigh wound site with Adaptic, nonstick Telfa, 4 x 4's, ABDs, and Hollis wrap Active range of motion of the left lower extremity without difficulty Evidence of a tattoo over the left lower extremity Neurovascularly intact. Assessment: Status post irrigation and debridement with excisional debridement of the new tissue left thigh abscess Status post dog bite Left thigh pain Left posterior thigh cellulitis History of DVT, osteoarthritis, and thyroid disorder Status post left total knee arthroplasty June 2018 History of previous lumbar laminectomy Plan: 1. We will continue with conservative treatment at this time in regards to his left posterior thigh. We not currently planning for further surgical intervention at his left posterior thigh. Iodoform gauze has been removed by infectious disease. Patient states as well as nursing infectious disease was planning to repack the wound site with a rope type dressing. We do not feel the wound site needs repacking. There is currently no active drainage from the wound site. The wound site and skin adjacent to the wound site have had some improvement in terms of erythema and swelling. There continues to be some induration around the wound site. He is not experiencing any significant pain on palpation around the wound site. Dressing is reapplied over the wound site with Adaptic, nonstick Telfa, 4 x 4's, ABDs, and Hollis wrap. He may keep this dressing intact. He should keep the dressing over the left thigh dry. We will continue to keep the sutures intact. Patient will continue to remain in the hospital until culture results have been resulted so he may be prescribed an antibiotic medication at the time of discharge. This will continue to be monitored and controlled by infectious disease. At this time, patient is clear for discharge from an orthopedic standpoint. We'll plan have him follow up in outpatient setting on 01/06/2019. We'll plan to remove the dressing at that time examine the wound L plan for redressing as needed at that time. Patient may continue to ambulate as tolerated on the left lower extremity. 2. Patient will continue to be seen by medicine and infectious disease; culture results are currently pending so that infectious disease and he prescribed appropriate antibiotic medications at discharge
--- NOTE | 2019-01-04 15:53 | P.PN ---
Subjective This is a 63-year-old male patient of my partner. Greater than week ago he had a dog bite, no seen in emergency room on December 26 and started on Bactrim DS. He reports that since of his pain is become increasing in severity along with worsening redness and drainage from his wound.. . He came in the emergency room for the significant pain. Was diagnosed with a cellulitis and admitted. January 03, 2019: Patient is status post I&D of his left thigh abscess yesterday, Dr. Hopkins. He remains on Unasyn and vancomycin. Wound cultures are pending. He denies any chest pains, pressures, shortness of breath, nausea or vomiting. He otherwise feels okay other than some minor pain at the wound site. January 04, 2019: Patient remained stable. His pain is controlled he is postop I&D abscess left thigh D2. He remains in using vancomycin, wound cultures are still pending. He still does not have any chest pains pressure short of breath nausea or vomiting. His pain at the wound site is controlled. He is a bit "stir crazy" and would really like to go home soon. I discussed the need for confirmation of the organism causing his infection so that he is likely to get the appropriate antibiotic treatment, whether that the PICC line and IV or orals. Of course is to be determined by infectious disease. He seems to understand that and calms down after our discussion today. Objective - Vital Signs Vital signs: Vital Signs Temp 97.8 F 01/04/19 14:44 Pulse 71 01/04/19 14:44 Resp 16 01/04/19 14:44 BP 117/71 01/04/19 14:44 Pulse Ox 97 01/04/19 14:44 Intake & Output 01/03/19 01/04/19 01/04/19 18:59 06:59 18:59 Intake Total 1775 600 Balance 1775 600 Intake: IV 600 Sodium Chloride 0.9% 1, 600 000 ml @ 75 mls/hr IV . [id number] [facility] Rx#:[id number] Intake, IV Titration 725 Amount Sodium Chloride 0.9% 1, 725 000 ml @ 75 mls/hr IV . [id number] [facility] Rx#:[id number] Oral 1050 Other: Voiding Method Toilet Toilet # Voids 1 1 - Exam GENERAL: Well-appearing, well-nourished and in no acute distress. NECK: Normal range of motion, supple without lymphadenopathy or JVD, no thyromegaly LUNGS: Breath sounds clear to auscultation bilaterally and equal. No wheezes rales or rhonchi. HEART: Regular rate and rhythm without murmurs, rubs or gallops.S1S2 Normal ABDOMEN: Soft, nontender, normoactive bowel sounds. No guarding, no rebound. No masses appreciated. EXTREMITIES: Dressing in the left posterior thigh is clean dry and intact.wound is suturesd with minimal drainage on dressing NEUROLOGICAL: Cranial nerves II through XII grossly intact. Normal speech, normal gait. PSYCH: Normal mood, normal affect. SKIN: Warm, Dry, normal turgor, no rashes or lesions noted. - Labs CBC & Chem 7: 01/04/19 07:15 01/04/19 07:15 Labs: Abnormal Lab Results - Last 24 Hours (Table) 01/04/19 01/04/19 Range/Units 07:15 07:15 RBC 4.00 L (4.30-5.90) m/uL Hgb 12.4 L (13.0-17.5) gm/dL Hct 38.1 L (39.0-53.0) % Plt Count 147 L (150-450) k/uL Carbon Dioxide 21 L (22-30) mmol/L Microbiology - Last 24 Hours (Table) 01/01/19 09:05 Blood Culture - Preliminary Blood No Growth after 72 hours Assessment and Plan (1) Abscess of left thigh Current Visit: Yes Status: Acute Code(s): L02.416 - CUTANEOUS ABSCESS OF LEFT LOWER LIMB SNOMED Code(s): 97783193753211788 (2) Acute thigh pain Current Visit: Yes Status: Acute Code(s): M79.659 - PAIN IN UNSPECIFIED THIGH SNOMED Code(s): 73137913 (3) Cellulitis Current Visit: Yes Status: Acute Code(s): L03.90 - CELLULITIS, UNSPECIFIED SNOMED Code(s): 514150595 (4) Dog bite Current Visit: Yes Status: Acute Code(s): W54.0XXA - BITTEN BY DOG, INITIAL ENCOUNTER SNOMED Code(s): 277226471 (5) History of lumbar laminectomy Current Visit: Yes Status: Acute Code(s): Z98.890 - OTHER SPECIFIED POSTPROCEDURAL STATES SNOMED Code(s): 19931544431646399 (6) History of osteoarthritis Current Visit: Yes Status: Acute Code(s): Z87.39 - PERSONAL HISTORY OF DISEASES OF THE MS SYS AND CONN TISS SNOMED Code(s): 769909340 (7) Thyroid disorder Current Visit: Yes Status: Acute Code(s): E07.9 - DISORDER OF THYROID, UNSPECIFIED SNOMED Code(s): 04669066 Plan: We'll await further recommendations and upcoming surgery with orthopedics and the infectious disease antibiotic recommendations. Repeat labs in am, he'll be reevaluated next 24 hours.
[2019-01-04] MEDS: MELATONIN 3 MG TABLET PO SCH (22:00)
--- NOTE | 2019-01-04 23:41 | PN ---
PROGRESS NOTE DATE OF SERVICE: 01/04/2019. REASON FOR FOLLOWUP: Left thigh abscess. INTERVAL HISTORY: The patient is currently afebrile. The patient has been breathing comfortably. Denies having any chest pain or cough. No nausea, vomiting or worsening pain to the left thigh area. PHYSICAL EXAMINATION: Blood pressure 112/65 with a pulse of 66, temperature 98.1. He is 96% on room air. General description is a middle-aged male up in the bed in no distress. RESPIRATORY SYSTEM: Unlabored breathing. Clear to auscultation anteriorly. HEART: S1, S2. Regular rate and rhythm. ABDOMEN: Soft. No tenderness. LEFT THIGH WOUND: Minimal swelling. Minimal drainage. Surrounding redness improved. LABS: Wound culture with presumptive MRSA. DIAGNOSTIC IMPRESSION AND PLAN: Patient with left thigh abscess, status post drainage. Culture with presumptive MRSA. To continue with vancomycin. Unasyn will be discontinued. Will wait for the final sensitivity to determine his discharge antibiotics. Continue with supportive care. MMODL / IJN: [id number] /
[2019-01-05] MEDS: VANCOMYCIN 1,750 MG in SODIUM CHLORIDE 0.9% 500 ML 500 ML IVPB SCH (05:49)
[2019-01-05] MEDS: LEVOTHYROXINE 50 MCG TAB PO SCH (05:51)
[2019-01-05] MEDS: SODIUM CHLORIDE 0.9% 1,000 ML IV SCH (05:52)
[2019-01-05 08:34] VITALS: BP 116/73; PULSE 49; RESP 16; TEMP 97.8
[2019-01-05 08:36] LABS: Basophils % (A) 1 %; Eosinophils # (A) 0.1 k/uL (0-0.7); Eosinophils % (A) 4 %; HCT 34.7 % (39.0-53.0); HGB 11.5 gm/dL (13.0-17.5); Lymphocytes # (A) 1.3 k/uL (1.0-4.8); Lymphocytes % (A) 35 %; MCH 31.8 pg (25.0-35.0); MCHC 33.2 g/dL (31.0-37.0); MCV 95.9 fL (80.0-100.0); Mean Platelet Volume 7.1; Monocytes # (A) 0.3 k/uL (0-1.0); Monocytes % (A) 7 %; Neutrophils # (A) 1.9 k/uL (1.3-7.7); Neutrophils % (A) 51 %; Platelet Count 134 k/uL (150-450); RBC 3.62 m/uL (4.30-5.90); RDW 13.8 % (11.5-15.5); WBC 3.6 k/uL (3.8-10.6)
[2019-01-05 08:39] LABS: African American GFR (CKD) >90 (>60 ml/min/1.73 sqM); Anion Gap 7 mmol/L; Blood Urea Nitrogen 11 mg/dL (9-20); Calcium 8.3 mg/dL (8.4-10.2); Carbon Dioxide 25 mmol/L (22-30); Chloride 107 mmol/L (98-107); Glucose 91 mg/dL (74-99); Potassium 3.9 mmol/L (3.5-5.1); Sodium 139 mmol/L (137-145)
--- NOTE | 2019-01-05 11:29 | P.PN ---
Progress Note - Text Progress Note Date: 01/05/19 Postoperative day #3 Patient is seen and examined today at bedside. The patient denies any pain in his left thigh. He has been ambulatory and doing well. He denies any fevers chills. Physical Exam Afebrile with stable vital signs Abdomen is soft nontender. Chest has good excursion deep and space expiration The incision site is clean dry and intact. No erythema there is no purulence. His thigh is soft nontender. There is no significant fluid collection. There is no erythema. Extremities have not had neurologic change from prior to surgery. Calves and thighs were soft nontender without evidence of DVT. Assessment/Plan Postoperative day #3 status post irrigation and debridement of left thigh abscess Positive growth of MRSA on cultures from left thigh Patient is progressing as expected from the surgery in terms of his wound site was pierced be doing well. We do not have any further plans for further surgical intervention at this point We will continue to increase the patient's mobilization with therapy. The patient's continued IV regimen will be determined by infectious disease. It is okay for him to be discharged home from an orthopedic standpoint whenever he has his IV regimen determine with infectious disease. We'll continue to follow patient closely.
--- NOTE | 2019-01-05 12:00 | P.PN ---
Progress Note - Text Patient seen and evaluated. Planning on discharging today, once sensitivity are resulted in infectious disease makes recommendations for ongoing antibiotics.
--- NOTE | 2019-01-05 13:58 | P.DS ---
Providers Date of admission: 01/03/19 10:26 Expected date of discharge: 01/05/19 Attending physician: Miko Murguia Consults: 01/01/19 09:30 Consult Physician Urgent Consulting Provider: Derick Cee Consult Reason/Comments: cellulitis left leg Do you want consulting provider notified?: Yes 01/01/19 09:31 Consult Physician Urgent Consulting Provider: Deneen Baker Consult Reason/Comments: left leg cellulitis Do you want consulting provider notified?: Yes Primary care physician: Miko Murguia - Discharge Diagnosis(es) (1) Abscess of left thigh Current Visit: Yes Status: Acute (2) Acute thigh pain Current Visit: Yes Status: Acute (3) Cellulitis Current Visit: Yes Status: Acute (4) Dog bite Current Visit: Yes Status: Acute (5) History of lumbar laminectomy Current Visit: Yes Status: Acute (6) History of osteoarthritis Current Visit: Yes Status: Acute (7) Thyroid disorder Current Visit: Yes Status: Acute Hospital Course: This is a 63-year-old male patient of my partner. Greater than week ago he had a dog bite, no seen in emergency room on December 26 and started on Bactrim DS. He reports that since of his pain is become increasing in severity along with worsening redness and drainage from his wound.. . He came in the emergency room for the significant pain. Was diagnosed with a cellulitis and admitted. January 03, 2019: Patient is status post I&D of his left thigh abscess yesterday, Dr. Hopkins. He remains on Unasyn and vancomycin. Wound cultures are pending. He denies any chest pains, pressures, shortness of breath, nausea or vomiting. He otherwise feels okay other than some minor pain at the wound site. January 04, 2019: Patient remained stable. His pain is controlled he is postop I&D abscess left thigh D2. He remains in using vancomycin, wound cultures are still pending. He still does not have any chest pains pressure short of breath nausea or vomiting. His pain at the wound site is controlled. He is a bit "stir crazy" and would really like to go home soon. I discussed the need for confirmation of the organism causing his infection so that he is likely to get the appropriate antibiotic treatment, whether that the PICC line and IV or orals. Of course is to be determined by infectious disease. He seems to understand that and calms down after our discussion today. 01/05/2019: patient doing well. Wound remains sutured shut. Cultures prelimary show MRSA. Pateint requesting D/C now. ID amenable and D?C vancomycin in favor of PO bactrim. Plan - Discharge Summary Discharge Rx Participant: Yes New Discharge Prescriptions: New Sulfamethox-Tmp 800-160Mg [Bactrim DS 800-160 mg] 1 tab PO Q12HR #20 tab Melatonin 3 mg PO HS tablet Continue Levothyroxine Sodium [Synthroid] 50 mcg PO DAILY Naproxen Sodium [Aleve] 220 mg PO Q12HR PRN PRN Reason: Pain Discontinued Amoxic-Pot Clav 875-125Mg [Augmentin 875-125] 1 tab PO Q12HR #20 tablet Discharge Medication List Levothyroxine Sodium [Synthroid] 50 mcg PO DAILY 06/02/18 [History] Naproxen Sodium [Aleve] 220 mg PO Q12HR PRN 06/02/18 [History] Melatonin 3 mg PO HS tablet 01/05/19 [Rx] Sulfamethox-Tmp 800-160Mg [Bactrim DS 800-160 mg] 1 tab PO Q12HR #20 tab 01/05/19 [Rx] Follow up Appointment(s)/Referral(s): [facility], [NON-STAFF] - Miko Murguia Jr, DO [Primary Care Provider] - 1-2 days Joby Saunders PAC [PHYSICIAN JAVA ENTERPRISE ARCHITECT] - 01/06/19 (Patient may follow-up with Joby Saunders PA-C or Dr. Bud Viera at [facility] on 01/06/2019, following discharge. ) Patient Instructions/Handouts: *Surgery [facility] - Knee Arthroscopy Home Instructions, Quadriceps Exercises (GEN) Activity/Diet/Wound Care/Special Instructions: 1. Aquacel silver dressing packing of the wound , daily , call [phone] to make an appointment to see Dr Baker in wound care center next week 2. may weight-bear as tolerated on the left lower extremity Discharge Disposition: HOME SELF-CARE
--- NOTE | 2019-01-05 16:38 | PN ---
PROGRESS NOTE DATE OF SERVICE: 01/05/2019 REASON FOR FOLLOWUP: Left posterior thigh MRSA abscess. INTERVAL HISTORY: The patient is currently afebrile. The patient has been feeling better, breathing comfortably. Overall pain and discomfort to the left posterior thigh has improved. The patient denies having any chest pain, shortness of breath or cough. No nausea or vomiting. No abdominal pain. No diarrhea. He wants to go home. PHYSICAL EXAMINATION: Blood pressure 116/73 with a pulse of 49, temperature 97.9. He is 95% on room air. General description is a middle-aged male up in the room in no distress. RESPIRATORY SYSTEM: Unlabored breathing. Clear to auscultation anteriorly. HEART: S1, S2. Regular rate and rhythm. ABDOMEN: Soft. No tenderness. Left posterior thigh wound is currently dressed up. No obvious drainage on the dressing. LABS: Hemoglobin is 11.5, white count 3.6, BUN of 11, creatinine 0.85. Wound culture with MRSA with sensitivities pending. DIAGNOSTIC IMPRESSION AND PLAN: Patient with methicillin-resistant Staphylococcus aeruginosa left posterior thigh abscess, status post surgical drainage with sensitivities of MRSA currently pending. However, the patient is insisting on going home. The patient will be sent home on a 10- day course of oral Bactrim DS with advice to follow up in the wound care center next week and to call us tomorrow so we can review his sensitivity report, and if his infection is not sensitive to Bactrim, antibiotic will be changed. His questions and concerns were answered. Local wound care with Aquacel Silver packing. MMODL / IJN: [id number] /
[2019-01-06] MEDS ORDERED: VANCOMYCIN TROUGH DUE 1 EACH MISC MISCELLANE ONE (05:00)
== END 2019-01-05 15:28 | disposition home health service (06) | DRG 581 ==
LOC: EC 08:26 → 4SSUR 09:38 → OBSVTOIN 01-03 10:26
PROVIDERS: ADMIT Family Medicine; ATTEND Family Medicine
PROC: 0KBR0ZZ Excision of Left Upper Leg Muscle, Open Approach (ICD-10-PCS; principal; 2019-01-03)
DX: L02.416 Cutaneous abscess of left lower limb (principal); S71.152A Open bite, left thigh, initial encounter; L03.116 Cellulitis of left lower limb; B95.62 Methicillin resistant Staphylococcus aureus infection as the cause of diseases classified elsewhere; E07.9 Disorder of thyroid, unspecified; M19.90 Unspecified osteoarthritis, unspecified site; Z79.890 Hormone replacement therapy; Z86.718 Personal history of other venous thrombosis and embolism; Z96.652 Presence of left artificial knee joint; Z87.442 Personal history of urinary calculi; Z98.890 Other specified postprocedural states; Z88.6 Allergy status to analgesic agent; W54.0XXA Bitten by dog, initial encounter; Y93.55 Activity, bike riding; Y92.9 Unspecified place or not applicable; Z80.3 Family history of malignant neoplasm of breast; Z80.6 Family history of leukemia
CPT/HCPCS: 36415; 80048; 80053; 80202; 85025; 85610; 85730; 86140; 87040; 87070; 87075; 87077; 87186; 87205; 96361; 96365; 99284

== ENCOUNTER 2022-11-12 13:48 | Emergency (ER) | payer MEDICARE ==
[2022-11-12 13:54] VITALS: TEMP 97.8
--- NOTE | 2022-11-12 14:24 | ED ---
General Adult HPI - General Chief complaint: Extremity Problem,Nontraumatic Stated complaint: R leg swelling Time Seen by Provider: 11/12/22 13:55 Source: patient, RN notes reviewed, old records reviewed Mode of arrival: ambulatory Limitations: no limitations - History of Present Illness Initial comments: This is a 67-year-old male who presents emergency Department stating he has had a history of a DVT. Patient states he is not on any blood thinners. Patient states over the last month she's had swelling in his right leg from the knee down to his ankle. Patient states it has gotten slightly worse over that period of time. Patient denies any chest pain difficulty breathing shortness of breath. Patient denies any palpitations. Patient states there have been times of last month with the swelling seems to go down. Patient does wear compression stockings quite a bit of time. Patient denies any injury or pain in the knee ankle or foot. Patient denies any calf tenderness. - Related Data Home Medications Medication Instructions Recorded Confirmed Levothyroxine Sodium [Synthroid] 50 mcg PO DAILY 06/02/18 11/12/22 LORazepam [Ativan] 1 mg PO HS 11/12/22 11/12/22 Allergies Allergy/AdvReac Type Severity Reaction Status Date / Time aspirin Allergy Unknown Rash/Hives/ Verified 11/12/22 15:15 itching Review of Systems ROS Statement: Those systems with pertinent positive or pertinent negative responses have been documented in the HPI. ROS Other: All systems not noted in ROS Statement are negative. Past Medical History Past Medical History: Deep Vein Thrombosis (DVT), Osteoarthritis (OA), Thyroid Disorder Additional Past Medical History / Comment(s): hx HERNIATED DISC L2 and L3, hx kidney stones, hammertoes, History of Any Multi-Drug Resistant Organisms: MRSA Date of last positivie culture/infection: 01/02/19 MDRO Source:: MRSA THIGH Past Surgical History: Back Surgery, Hernia Repair, Joint Replacement, Orthopedic Surgery Additional Past Surgical History / Comment(s): LEFT KNEE REPLACEMENT, rt foot hammertoe 2nd digit, FER INGUINAL HERNIAS, laminectomy x 2 Past Anesthesia/Blood Transfusion Reactions: Previous Problems w/ Anesthesia Additional Past Anesthesia/Blood Transfusion Reaction / Comment(s): difficulty waking up with hernia surgery, dvt after back surgery Past Psychological History: No Psychological Hx Reported Smoking Status: Never smoker Past Alcohol Use History: Occasional Past Drug Use History: Marijuana - Past Family History Mother Family Medical History: Cancer Additional Family Medical History / Comment(s): breast Brother(s) Family Medical History: Cancer Sister(s) Family Medical History: Cancer Additional Family Medical History / Comment(s): leukemia General Exam - General Exam Comments Initial Comments: GENERAL: Patient is well-developed and well-nourished. Patient is nontoxic and well- hydrated and is in no acute distress. ENT: Neck is soft and supple. No significant lymphadenopathy is noted. Oropharynx is clear. Moist mucous membranes. Neck has full range of motion without eliciting any pain. EYES: The sclera were anicteric and conjunctiva were pink and moist. Extraocular movements were intact and pupils were equal round and reactive to light. Eyelids were unremarkable. SKIN: Skin is clear with no lesions or rashes and otherwise unremarkable. NEUROLOGIC: Patient is alert and oriented x3. Cranial nerves II through XII are grossly intact. Motor and sensory are also intact. Normal speech, volume and content. Symmetrical smile. MUSCULOSKELETAL: Normal extremities with adequate strength and full range of motion. Patient has swelling from the knee down there is no area of tenderness. No calf tenderness LYMPHATICS: No significant lymphadenopathy is noted PSYCHIATRIC: Normal psychiatric evaluation. Limitations: no limitations Course Vital Signs 11/12/22 13:50 Temperature 97.8 F Pulse Rate 68 Respiratory 20 Rate Blood Pressure 133/78 O2 Sat by Pulse 96 Oximetry Medical Decision Making - Medical Decision Making Was pt. sent in by a medical professional or institution (, [facility], TRUST OPERATIONS ASSISTANT, urgent care, hospital, or long term...) When possible be specific @ -No Did you speak to anyone other than the patient for history (EMS, parent, family, police, friend...)? What history was obtained from this source @ -No Did you review nursing and triage notes (agree or disagree)? Why? @ -I reviewed and agree with nursing and triage notes Were old charts reviewed (outside hosp., previous admission, EMS record, old EKG, old radiological studies, urgent care reports/EKG's, long term records)? Report findings @ -No old charts were reviewed Differential Diagnosis (chest pain, altered mental status, abdominal pain women, abdominal pain men, vaginal bleeding, weakness, fever, dyspnea, syncope, headache, dizziness, GI bleed, back pain, seizure, CVA, palpatations, mental health, musculoskeletal)? @ -Leg edema, cellulitis, gout, DVT, EKG interpreted by me (3pts min.). @ -As above X-rays interpreted by me (1pt min.). @ -None done CT interpreted by me (1pt min.). @ -None done U/S interpreted by me (1pt. min.). @ -Ultrasound showed no signs of DVT What testing was considered but not performed or refused? (CT, X-rays, U/S, labs)? Why? @ -None What meds were considered but not given or refused? Why? @ -None Did you discuss the management of the patient with other professionals (professionals i.e. , PA, TRUST OPERATIONS ASSISTANT, lab, RT, psych nurse, social security assessor, vascular surgeon, teacher, chief science officer, piano case maker)? Give summary @ -No Was smoking cessation discussed for >3mins.? @ -No Was critical care preformed (if so, how long)? @ -No Were there social determinants of health that impacted care today? How? (Homelessness, low income, unemployed, alcoholism, drug addiction, transportation, low edu. Level, literacy, decrease access to med. care, retirement, rehab)? @ -No Was there de-escalation of care discussed even if they declined (Discuss DNR or withdrawal of care, Hospice)? DNR status @ -No What co-morbidities impacted this encounter? (DM, HTN, Smoking, COPD, CAD, Cancer, CVA, ARF, Chemo, Hep., AIDS, mental health diagnosis, sleep apnea, morbid obesity)? @ -None Was patient admitted / discharged? Hospital course, mention meds given and route, prescriptions, significant lab abnormalities, going to OR and other pertinent info. @ -No DVT according to the ultrasound. Patient had no injury recently. Patient had no area of redness. Patient had no area of pain. Undiagnosed new problem with uncertain prognosis? @ -No Drug Therapy requiring intensive monitoring for toxicity (Heparin, Nitro, Insulin, Cardizem)? @ -No Were any procedures done? @ -No Diagnosis/symptom? @ -Leg swelling Acute, or Chronic, or Acute on Chronic? @ -Acute Uncomplicated (without systemic symptoms) or Complicated (systemic symptoms)? @ -Complicated Side effects of treatment? @ -No Exacerbation, Progression, or Severe Exacerbation? @ -No Poses a threat to life or bodily function? How? (Chest pain, [place], AR, pneumonia, PE, COPD, DKA, ARF, appy, cholecystitis, CVA, Diverticulitis, Homicidal, Suicidal, threat to staff... and all critical care pts) @ -No Disposition Clinical Impression: Leg swelling Disposition: HOME SELF-CARE Condition: Good Instructions (If sedation given, give patient instructions): Leg Edema (ED) Is patient prescribed a controlled substance at d/c from ED?: No Referrals: Miko Murguia Jr, DO [Primary Care Provider] - 1-2 days Time of Disposition: 16:01
--- NOTE | 2022-11-12 14:55 | US ---
EXAMINATION TYPE: US venous doppler duplex LE RT DATE OF EXAM: 11/12/2022 2:44 PM COMPARISON: NONE CLINICAL INDICATION: Male, 67 years old with history of Swelling and a history of DVT; Right leg swel ling/ prior DVT, pt currently not on thinners SIDE PERFORMED: Right TECHNIQUE: The lower extremity deep venous system is examined utilizing real time linear array sonog diana with graded compression, doppler sonography and color-flow sonography. VESSELS IMAGED: Common Femoral Vein Deep Femoral Vein Greater Saphenous Vein * Femoral Vein Popliteal Vein Small Saphenous Vein * Proximal Calf Veins (* superficial vessels) Grayscale, color doppler, spectral doppler imaging performed of the deep veins of the lower extremiti es. There is normal flow, compressibility, vascular waveforms. Right Leg: Negative for DVT IMPRESSION: No ultrasound evidence for deep venous thrombosis of the right laterally.
[2022-11-12 16:12] VITALS: BP 120/85; PULSE 56; RESP 16
== END 2022-11-12 16:12 | disposition home or self-care (01) ==
LOC: EC 13:48
DX: R22.41 Localized swelling, mass and lump, right lower limb (principal); M19.90 Unspecified osteoarthritis, unspecified site; E07.9 Disorder of thyroid, unspecified; Z86.718 Personal history of other venous thrombosis and embolism; F12.90 Cannabis use, unspecified, uncomplicated; Z88.6 Allergy status to analgesic agent; Z79.890 Hormone replacement therapy; Z79.899 Other long term (current) drug therapy
CPT/HCPCS: 99283

== ENCOUNTER 2023-05-24 07:50 | Inpatient (IN) | payer MEDICARE, OTHER ==
[2023-05-24 08:20] LABS: Glucose,Whole Blood 99 mg/dL (70-110)
--- NOTE | 2023-05-24 08:27 | ED ---
General Adult HPI - General Chief complaint: Neuro Symptoms/Deficit Stated complaint: facial droop Time Seen by Provider: 05/24/23 08:10 Source: patient, RN notes reviewed, old records reviewed Mode of arrival: ambulatory Limitations: no limitations - History of Present Illness Initial comments: Patient is a 67-year-old male who presents emergency department complaining of strokelike symptoms. States he went to bed last night at approximately 10 PM ( 2200 on 05/23/23). There was last time he can confirm he had no symptoms. Awoke this morning and that his normal morning activities and then when he looked in the mirror for the first time at approximately 7 AM, he noticed that he had right-sided facial droop. States no one would have noticed it before and he does not feel it other than when he looks in the mirror. He has no other symptoms. Rode his bike here for further evaluation. Denies any chest pain or shortness of breath. Denies any sensory deficits. Denies any blurry vision or headaches. Does have a history of provoked DVT following surgery. No longer on blood thinners. No head trauma. Presents for further evaluation at this time. - Related Data Home Medications Medication Instructions Recorded Confirmed Levothyroxine Sodium [Synthroid] 50 mcg PO DAILY 06/02/18 05/24/23 LORazepam [Ativan] 1 mg PO HS 11/12/22 05/24/23 Allergies Allergy/AdvReac Type Severity Reaction Status Date / Time aspirin Allergy Unknown Rash/Hives/ Verified 05/24/23 10:59 itching Review of Systems ROS Statement: Those systems with pertinent positive or pertinent negative responses have been documented in the HPI. Review of Systems: CONST: Denies fever EYES: Denies blurry vision ENT: Denies nasal congestion C/V: Denies Chest pain RESP: Denies shortness of breath GI: Denies abdominal pain : Denies dysuria SKIN: Denies rash. MSK: Denies joint pain. NEURO: Denies headache ROS Other: All systems not noted in ROS Statement are negative. Past Medical History Past Medical History: Deep Vein Thrombosis (DVT), Osteoarthritis (OA), Thyroid Disorder Additional Past Medical History / Comment(s): hx HERNIATED DISC L2 and L3, hx kidney stones, hammertoes, History of Any Multi-Drug Resistant Organisms: MRSA Date of last positivie culture/infection: 01/02/19 MDRO Source:: MRSA THIGH Past Surgical History: Back Surgery, Hernia Repair, Joint Replacement, Orthopedic Surgery Additional Past Surgical History / Comment(s): LEFT KNEE REPLACEMENT, rt foot hammertoe 2nd digit, FER INGUINAL HERNIAS, laminectomy x 2 Past Anesthesia/Blood Transfusion Reactions: Previous Problems w/ Anesthesia Additional Past Anesthesia/Blood Transfusion Reaction / Comment(s): difficulty waking up with hernia surgery, dvt after back surgery Past Psychological History: No Psychological Hx Reported Smoking Status: Never smoker Past Alcohol Use History: Occasional Past Drug Use History: Marijuana - Past Family History Mother Family Medical History: Cancer Additional Family Medical History / Comment(s): breast Brother(s) Family Medical History: Cancer Sister(s) Family Medical History: Cancer Additional Family Medical History / Comment(s): leukemia General Exam - General Exam Comments Initial Comments: General: Appears in no acute distress. HEAD: Normal with no signs of head trauma. EYES: PERRLA, EOMI, conjunctiva normal, no discharge. Pupils are 3 mm and equal bilaterally. ENT: Hearing grossly intact, normal oropharynx. RESPIRATORY: Clear breath sounds bilaterally. No wheezes, rales, or rhonchi. C/V: Regular rate and rhythm. S1 and S2 auscultated, no edema, peripheral pulses 2+ and intact throughout ABD: Abd is soft, nontender, nondistended EXT: Normal range of motion, no obvious deformity SKIN: No rashes or lesions observed on exposed skin. NEURO: Alert and oriented x 4. NIH is 2 for right-sided lower facial paralysis. No other deficits. Patient does have sparing of the forehead. Still able to wrinkle his forehead and close his eye without difficulty. Limitations: no limitations Course Vital Signs 05/24/23 05/24/23 05/24/23 07:53 08:34 09:16 Temperature 97.6 F Pulse Rate 78 63 73 Respiratory 18 18 18 Rate Blood Pressure 153/94 137/79 124/75 O2 Sat by Pulse 99 95 96 Oximetry 05/24/23 10:21 Temperature Pulse Rate 59 L Respiratory 18 Rate Blood Pressure 121/86 O2 Sat by Pulse 98 Oximetry Medical Decision Making - Medical Decision Making Was pt. sent in by a medical professional or institution (, PA, SEWER REPAIRER, urgent care, hospital, or [facility]...) When possible be specific @ -No Did you speak to anyone other than the patient for history (EMS, parent, family, police, friend...)? What history was obtained from this source @ -No Did you review nursing and triage notes (agree or disagree)? Why? @ -I reviewed and agree with nursing and triage notes Were old charts reviewed (outside hosp., previous admission, EMS record, old EKG, old radiological studies, urgent care reports/EKG's, [facility] records)? Report findings @ -Old chart reviewed Differential Diagnosis (chest pain, altered mental status, abdominal pain women, abdominal pain men, vaginal bleeding, weakness, fever, dyspnea, syncope, headache, dizziness, GI bleed, back pain, seizure, CVA, palpatations, mental health, musculoskeletal)? @ -Differential CVA Ischemic stroke, hemorrhagic stroke, brain tumor, atypical migraine, Wernicke's encephalopathy, seizure, multiple sclerosis, meningitis, encephalitis, hypoglycemia, Guillain-Navarro, electrolytes disturbance, myasthenia gravis.... This is not meant to be an all-inclusive list EKG interpreted by me (3pts min.). @ -As above X-rays interpreted by me (1pt min.). @ -Chest x-ray reveals no obvious acute cardiopulmonary process. CT interpreted by me (1pt min.). @ -CT brain shows no obvious acute intracranial process. CT angiogram of the head and neck reveals no obvious intracranial process or stenosis. No obvious large vessel occlusion. 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 U/S interpreted by me (1pt. min.). @ -None done What testing was considered but not performed or refused? (CT, X-rays, U/S, labs)? Why? @ -None What meds were considered but not given or refused? Why? @ -Considered aspirin but patient is allergic. States he breaks out and a pruritic rash. Did you discuss the management of the patient with other professionals (professionals i.e. , PA, SEWER REPAIRER, lab, RT, psych nurse, healthcare social worker, appellate conferee, teacher, postal delivery officer, correctional casework specialist)? Give summary @ -Spoke with on-call neuro crit rental boats caretaker, Dr. Dudley who is in agreement with the plan. Discussed with Dr. Murguia who accepted the admission. Was smoking cessation discussed for >3mins.? @ -No Was critical care preformed (if so, how long)? @ -Yes, 36 minutes Were there social determinants of health that impacted care today? How? (Homelessness, low income, unemployed, alcoholism, drug addiction, transportation, low edu. Level, literacy, decrease access to med. care, usp, rehab)? @ -No Was there de-escalation of care discussed even if they declined (Discuss DNR or withdrawal of care, Hospice)? DNR status @ -No What co-morbidities impacted this encounter? (DM, HTN, Smoking, COPD, CAD, C ancer, CVA, ARF, Chemo, Hep., AIDS, mental health diagnosis, sleep apnea, morbid obesity)? @ -None Was patient admitted / discharged? Hospital course, mention meds given and route, prescriptions, significant lab abnormalities, going to OR and other pertinent info. @ -Based on the patient's presentation and physical exam, presents with strokelike symptoms. Last known well was yesterday evening at 2200. Woke up with symptoms. NIH is 2. Patient is not a thrombolytic candidate as he is outside of the window and risks far outweigh the benefits. Code stroke was activated. I spoke with Dr. Stephens of [facility] who was in agreement the plan and if imaging is negative would like patient to be started on Plavix. Vital signs otherwise are within acceptable limits. EKG shows no signs of acute ischemia.Patient's laboratory studies are within acceptable limits. EKG shows no signs of acute ischemia. Chest x-ray as well as CT imaging of the head and neck reveals no obvious acute intracranial process. Patient does have an incidental finding of ectasia of the thoracic aorta. I discussed results with the patient including the ectasia finding. Patient expressed understanding. NIH remains 2 at this time. I recommended admission for neurology evaluation. He will be given Plavix as he is allergic to aspirin. Patient was in agreement this plan. Dr. Stephens was in agreement with this plan. Patient is still having sparing of the forehead as well as eye. Cannot definitively say this is not early Jacobs's palsy but as he is continuing to have normal motion of the right upper face I am more concerned for CVA at this time. I spoke with the admitting team, Dr. Murguia who accepted the admission and was in agreement the plan. Undiagnosed new problem with uncertain prognosis? @ -No Drug Therapy requiring intensive monitoring for toxicity (Heparin, Nitro, Insulin, Cardizem)? @ -No Were any procedures done? @ -No Diagnosis/symptom? @ -CVA Acute, or Chronic, or Acute on Chronic? @ -Acute Uncomplicated (without systemic symptoms) or Complicated (systemic symptoms)? @ -Complicated Side effects of treatment? @ -None Exacerbation, Progression, or Severe Exacerbation] @ -No Poses a threat to life or bodily function? @ -Yes - Lab Data Result diagrams: 05/24/23 08:18 05/24/23 08:18 Lab Results 05/24/23 05/24/23 05/24/23 Range/Units 08:12 08:18 08:18 WBC 4.7 (3.8-10.6) k/uL RBC 4.34 (4.30-5.90) m/uL Hgb 13.9 (13.0-17.5) gm/dL Hct 41.2 (39.0-53.0) % MCV 95.0 (80.0-100.0) fL MCH 32.1 (25.0-35.0) pg MCHC 33.8 (31.0-37.0) g/dL RDW 13.1 (11.5-15.5) % Plt Count 139 L (150-450) k/uL MPV 8.1 Neutrophils % 52 % Lymphocytes % 35 % Monocytes % 7 % Eosinophils % 3 % Basophils % 0 % Neutrophils # 2.4 (1.3-7.7) k/uL Lymphocytes # 1.7 (1.0-4.8) k/uL Monocytes # 0.3 (0-1.0) k/uL Eosinophils # 0.1 (0-0.7) k/uL Basophils # 0.0 (0-0.2) k/uL PT 10.6 (10.0-12.5) sec INR 1.0 (<1.2) APTT 24.5 (22.0-30.0) sec Sodium (137-145) mmol/L Potassium (3.5-5.1) mmol/L Chloride (98-107) mmol/L Carbon Dioxide (22-30) mmol/L Anion Gap mmol/L BUN (9-20) mg/dL Creatinine (0.66-1.25) mg/dL Est GFR (CKD-EPI)AfAm (>60 ml/min/1.73 sqM) Est GFR (CKD-EPI)NonAf (>60 ml/min/1.73 sqM) Glucose (74-99) mg/dL POC Glucose (mg/dL) 99 (70-110) mg/dL POC Glu Resource Development Manager Sheree Hernandez Calcium (8.4-10.2) mg/dL Total Bilirubin (0.2-1.3) mg/dL AST (17-59) U/L ALT (4-49) U/L Alkaline Phosphatase (38-126) U/L Creatine Kinase (55-170) U/L Troponin I (0.000-0.034) ng/mL Total Protein (6.3-8.2) g/dL Albumin (3.5-5.0) g/dL 05/24/23 05/24/23 Range/Units 08:18 08:18 WBC (3.8-10.6) k/uL RBC (4.30-5.90) m/uL Hgb (13.0-17.5) gm/dL Hct (39.0-53.0) % MCV (80.0-100.0) fL MCH (25.0-35.0) pg MCHC (31.0-37.0) g/dL RDW (11.5-15.5) % Plt Count (150-450) k/uL MPV Neutrophils % % Lymphocytes % % Monocytes % % Eosinophils % % Basophils % % Neutrophils # (1.3-7.7) k/uL Lymphocytes # (1.0-4.8) k/uL Monocytes # (0-1.0) k/uL Eosinophils # (0-0.7) k/uL Basophils # (0-0.2) k/uL PT (10.0-12.5) sec INR (<1.2) APTT (22.0-30.0) sec Sodium 136 L (137-145) mmol/L Potassium 4.7 (3.5-5.1) mmol/L Chloride 109 H (98-107) mmol/L Carbon Dioxide 19 L (22-30) mmol/L Anion Gap 8 mmol/L BUN 17 (9-20) mg/dL Creatinine 0.77 (0.66-1.25) mg/dL Est GFR (CKD-EPI)AfAm >90 (>60 ml/min/1.73 sqM) Est GFR (CKD-EPI)NonAf >90 (>60 ml/min/1.73 sqM) Glucose 108 H (74-99) mg/dL POC Glucose (mg/dL) (70-110) mg/dL POC Glu Resource Development Manager ID Calcium 9.0 (8.4-10.2) mg/dL Total Bilirubin 0.9 (0.2-1.3) mg/dL AST 34 (17-59) U/L ALT 18 (4-49) U/L Alkaline Phosphatase 43 (38-126) U/L Creatine Kinase 118 (55-170) U/L Troponin I <0.012 (0.000-0.034) ng/mL Total Protein 6.9 (6.3-8.2) g/dL Albumin 4.1 (3.5-5.0) g/dL - EKG Data -: EKG Interpreted by Me EKG Comments: 12-lead Electrocardiogram Interpretation Note EKG was reviewed and interpreted by myself. 12-lead ECG performed at 0807 is interpreted by me as revealing sinus rhythm with right bundle branch block. At a rate of 74 beats per minute. [place] is normal. LA interval is 174 ms, QRS duration is 151 ms, QTc is 422 ms.. There were no ST or T wave abnormalities to suggest myocardial ischemia or injury. R wave progression across the precordium was satisfactory. By my interpretation this EKG is non-diagnostic for acute ischemia. Compared with EKG from May 2018, with no significant change. Critical Care Time Critical Care Time: Yes Total Critical Care Time: 36 Disposition Clinical Impression: Cerebrovascular accident (CVA) Disposition: ADMITTED IP TO THIS HOSP Condition: Stable Time of Disposition: 09:58
[2023-05-24 08:30] LABS: Basophils % (A) 0 %; Eosinophils # (A) 0.1 k/uL (0-0.7); Eosinophils % (A) 3 %; HCT 41.2 % (39.0-53.0); HGB 13.9 gm/dL (13.0-17.5); Lymphocytes # (A) 1.7 k/uL (1.0-4.8); Lymphocytes % (A) 35 %; MCH 32.1 pg (25.0-35.0); MCHC 33.8 g/dL (31.0-37.0); Mean Platelet Volume 8.1; Monocytes # (A) 0.3 k/uL (0-1.0); Monocytes % (A) 7 %; Neutrophils # (A) 2.4 k/uL (1.3-7.7); Neutrophils % (A) 52 %; Platelet Count 139 k/uL (150-450); RBC 4.34 m/uL (4.30-5.90); RDW 13.1 % (11.5-15.5); WBC 4.7 k/uL (3.8-10.6)
[2023-05-24 08:43] LABS: Partial Thromboplastin Time 24.5 sec (22.0-30.0); Prothrombin Time 10.6 sec (10.0-12.5)
--- NOTE | 2023-05-24 08:45 | CT ---
EXAMINATION TYPE: CODE STROKE: CT brain wo contr CT DLP: 1084 mGycm, Automated exposure control for dose reduction was used. DATE OF EXAM: 05/24/2023 8:41 AM COMPARISON: None. CLINICAL INDICATION:Male, 67 years old with history of Neuro deficit, acute, stroke suspected, CODE S TROKE TECHNIQUE: Brain: Axial CT images of the brain were obtained with coronal and sagittal reformats created and rev iewed. Contrast used: None. Oral contrast used: None. FINDINGS: Brain: Extra-axial spaces: No abnormal extra-axial fluid collections. Ventricular system: Within normal limits Cerebral parenchyma: No acute intraparenchymal hemorrhage or mass effect. The obregon-white junction is well differentiated. Cerebellum: Unremarkable. Mass effect: No evidence of midline shift. Intracranial vasculature: unremarkable Soft tissues: Normal. Calvarium/osseous structures: No depressed skull fracture. Paranasal sinuses and mastoid air cells: Mild scattered paranasal sinus disease. Visualized orbits: Orbital contents are intact. IMPRESSION: No acute intracranial process.
--- NOTE | 2023-05-24 08:47 | XR ---
EXAMINATION TYPE: XR chest 2V DATE OF EXAM: 05/24/2023 8:33 AM CLINICAL INDICATION:Male, 67 years old with history of altered mental status; [facility] COMPARISON: Chest radiographs from 09/09/2017 TECHNIQUE: XR chest 2V Frontal and lateral views of the chest. FINDINGS: Lungs/Pleura: There is no evidence of pleural effusion, focal consolidation, or pneumothorax. Pulmonary vascularity: Unremarkable. Heart/mediastinum: Cardiomediastinal silhouette is unremarkable. Musculoskeletal: No acute osseous pathology. Other findings: None IMPRESSION: No acute cardiopulmonary disease/process.
[2023-05-24 08:48] LABS: ALT 18 U/L (4-49); AST 34 U/L (17-59); African American GFR (CKD) >90 (>60 ml/min/1.73 sqM); Albumin 4.1 g/dL (3.5-5.0); Alkaline Phosphatase 43 U/L (38-126); Anion Gap 8 mmol/L; Blood Urea Nitrogen 17 mg/dL (9-20); Carbon Dioxide 19 mmol/L (22-30); Chloride 109 mmol/L (98-107); Creatine Kinase 118 U/L (55-170); Glucose 108 mg/dL (74-99); Non-African American GFR(CKD) >90 (>60 ml/min/1.73 sqM); Sodium 136 mmol/L (137-145); Total Bilirubin 0.9 mg/dL (0.2-1.3); Total Protein 6.9 g/dL (6.3-8.2)
[2023-05-24 08:54] LABS: Potassium 4.7 mmol/L (3.5-5.1)
[2023-05-24] MEDS: CLOPIDOGREL 75 MG TAB PO STA (09:17)
--- NOTE | 2023-05-24 09:31 | CT ---
EXAMINATION TYPE: CT angio head neck CT DLP: 573 mGycm, Automated exposure control for dose reduction was used. DATE OF EXAM: 05/24/2023 9:19 AM COMPARISON: . Same day CT brain. CLINICAL INDICATION:Male, 67 years old with history of Neuro deficit, acute, stroke suspected; [facility], TECHNIQUE: Axially acquired helical CT angiogram of the head and neck was obtained with contrast. Axi al images are supplemented with 3D reconstructions and MIP images which were post-processed at an in dependent workstation. NASCET criteria used. Contrast used: mL of , 65 cc of Isovue 300 Oral contrast used: None. FINDINGS: CTA HEAD: No evidence of acute intracranial hemorrhage, mass effect, or midline shift. The ventricles, sulci, a nd cisterns are unremarkable. The visualized portions of the internal carotid arteries, middle cerebral arteries, anterior cerebral arteries, and posterior cerebral arteries are patent. The basilar and vertebral arteries are patent. CTA NECK: Right Carotid System: The common carotid artery and external carotid artery are patent. The carotid bifurcation demonstrate s no evidence of hemodynamically significant stenosis. The remaining portions of the internal carotid artery demonstrate normal size without significant narrowing. Left Carotid System: The common carotid artery and external carotid artery are patent. The carotid bifurcation demonstrate s no evidence of hemodynamically significant stenosis. The remaining portions of the internal carotid artery demonstrate normal size without significant narrowing. Vertebral arteries are patent without evidence hemodynamically significant stenosis. There is a 4-vessel aortic arch. The origins of the great vessels are patent. No evidence of signific ant stenosis. Ascending thoracic aorta ectasia up to 4 to 4 mm. Upper thorax: IMPRESSION: 1. No evidence of dissection of the cervical internal carotid arteries or vertebral arteries or any e vidence of significant stenosis at the carotid bifurcations. 2. No evidence of intracranial high-grade stenosis or intracranial aneurysm. 3. 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
--- NOTE | 2023-05-24 15:36 | P.CNNES ---
History of Present Illness Consult date: 05/24/23 Requesting physician: Dieudonne Britt Reason for Consult: cva vs. bells palsy History of Present Illness: Patient is a 67-year-old right-handed male came to the hospital today at 7:50 AM for acute onset of right facial weakness. Patient states that he woke up as usual at 5 in the morning and was feeling fine. He went to the bathroom. At 6 AM he went to crop picker his grandson from [facility] and dropped him back to [place]. While he was in the car at around 7 AM and he looked himself at the mirror, noticed some weakness of the right side. His right eye was droopy. He came home, and saw himself on the meter more closely and noticed right-sided weakness, therefore he came in the bicycle and rode to the ER. Patient denies any slurred speech, any focal numbness or tingling of the extremities or any focal weakness. His balance is perfectly normal. Vital signs on arrival blood pressure 153/94, pulse rate 78 temperature 97.6. Blood test shows normal CBC PT PTT, sodium 136 potassium is normal, renal f unctions, hepatic panel is normal. Troponin negative, CK normal 118. EKG shows sinus rhythm, possible left atrial enlargement. Chest x-ray is normal. CT head showed no acute intracranial process. I personally reviewed CT head, agree with the findings. Mild scattered paranasal sinus disease, mainly involving the ethmoid air cells. Patient states that in the last couple days he has been noticing some neck aching or stiffness pointing to the right backside of the head. He denies any changes in the T sensation. He has mild decreased hearing from chronic age- related. He denies any excessive watering of the eyes. He does have history of glaucoma. Patient has history of 2 back surgeries and left knee surgery x 2. Patient has hypothyroidism and takes levothyroxine and Ativan 1 mg as needed. Occasionally he takes Aleve. Aspirin produces hives. Patient states that he had little sniffles/cold a few weeks ago. He took [place] and the next day he was fine. Review of Systems All other review of systems completely unremarkable except as mentioned in HPI in detail. No chest pain shortness of breath. No other focal symptoms. He does have some fuzzy eyes from decreased blinking. No double vision. Past Medical History Past Medical History: Deep Vein Thrombosis (DVT), Osteoarthritis (OA), Thyroid Disorder Additional Past Medical History / Comment(s): hx HERNIATED DISC L2 and L3, hx kidney stones, hammertoes, History of Any Multi-Drug Resistant Organisms: MRSA Date of last positivie culture/infection: 01/02/19 MDRO Source:: MRSA THIGH Past Surgical History: Back Surgery, Hernia Repair, Joint Replacement, Orthopedic Surgery Additional Past Surgical History / Comment(s): LEFT KNEE REPLACEMENT, rt foot hammertoe 2nd digit, FER INGUINAL HERNIAS, laminectomy x 2 Past Anesthesia/Blood Transfusion Reactions: Previous Problems w/ Anesthesia Additional Past Anesthesia/Blood Transfusion Reaction / Comment(s): difficulty waking up with hernia surgery, dvt after back surgery Past Psychological History: No Psychological Hx Reported Smoking Status: Never smoker Past Alcohol Use History: Occasional Past Drug Use History: Marijuana - Past Family History Mother Family Medical History: Cancer Additional Family Medical History / Comment(s): breast Brother(s) Family Medical History: Cancer Sister(s) Family Medical History: Cancer Additional Family Medical History / Comment(s): leukemia Medications and Allergies Home Medications Medication Instructions Recorded Confirmed Type Levothyroxine Sodium [Synthroid] 50 mcg PO DAILY 06/02/18 05/24/23 History LORazepam [Ativan] 1 mg PO HS 11/12/22 05/24/23 History Allergies Allergy/AdvReac Type Severity Reaction Status Date / Time aspirin Allergy Unknown Rash/Hives/ Verified 05/24/23 10:59 itching Physical Examination - Vital Signs Vital Signs: Vital Signs Temp Pulse Resp BP Pulse Ox 05/24/23 10:21 59 L 18 121/86 98 05/24/23 09:16 73 18 124/75 96 05/24/23 08:34 63 18 137/79 95 05/24/23 07:53 97.6 F 78 18 153/94 99 Intake and Output 05/23/23 05/24/23 05/24/23 22:59 06:59 14:59 Other: Weight 97.522 kg Patient is an elderly male, very pleasant, in no acute distress. Patient is alert awake oriented to time place and person. Speech and language functions are normal. Patient can name and repeat very well. No aphasia or dysarthria. Attention, concentration and fund of knowledge is adequate. On cranial nerve examination, pupils are equal, round and reacting to light, visual wilson are full on confrontation, with no neglect on double simultaneous stimulation. Extraocular muscles are intact with no nystagmus. Patient has right facial weakness, which is slightly more prominent in the lower part including the right eye closure which is very weak. He has mild weakness of the right forehead region, particularly noticed laterally. His tongue protrudes to the midline. Palatal elevation and sensation normal, hearing is slightly decreased and shoulder shrug normal, facial sensation normal. On muscle strength testing, there is no pronator drift and the strength is normal in arms and legs distally and proximally. Deep tendon reflexes are symmetric hypoactive, trace in the arms and legs and plantars are downgoing. Sensory to touch is equal with no neglect on double simultaneous stimulation. Cerebellar function showed no ataxia for [id number] testing. No dysdiadochokinesia. No ataxia for [id number] testing on either side. Tone and bulk of muscles normal. Gait deferred.. On general examination, there is no carotid bruit or murmur, S1-S2 audible. Chest is clear on consultation. Abdomen is soft nontender. No organomegaly, bowel sounds present. Peripheral pulses are present. No peripheral edema. 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 Symptoms started this morning. * Hypothyroidism Plan: Patient probably has right Jacobs's palsy. Rest of the examination is completely normal. CTA head and neck showed: No evidence of dissection of the cervical internal carotid arteries or vertebral arteries or any evidence of significant stenosis at the carotid bifurcations. No evidence of intracranial high-grade stenosis or intracranial aneurysm. 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 Recommend prednisone 60 mg daily for 5 days and then decrease by 10 mg daily until off. Valtrex 1 g 3 times daily for 7 days. Patient is allergy to aspirin, as he develops hives. Fasting a.m. lipid panel Hemoglobin A1c Telemetry so far showing no arrhythmia. Neurologically clear for discharge. Thank you for the consult.
[2023-05-24] MEDS: predniSONE 20 MG TAB PO SCH (16:56)
[2023-05-24] MEDS: valACYclovir HCL 1,000 MG TABLET PO SCH (16:57)
[2023-05-24] MEDS: PANTOPRAZOLE 40 MG/10 ML VIAL IVP SCH (16:58)
[2023-05-24 17:40] VITALS: BP 122/79; PULSE 85; RESP 18; TEMP 97.8
[2023-05-25] MEDS ORDERED: CLOPIDOGREL 75 MG TAB PO SCH (09:00)
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
== END 2023-05-24 17:27 | disposition home or self-care (01) | DRG 74 ==
LOC: EC 07:50 → 3SCARD 10:11
PROVIDERS: ADMIT Family Medicine; ATTEND Family Medicine
DX: G51.0 Bell's palsy (principal); E03.9 Hypothyroidism, unspecified; I10 Essential (primary) hypertension; I77.810 Thoracic aortic ectasia; J32.4 Chronic pansinusitis; M19.90 Unspecified osteoarthritis, unspecified site; Z79.890 Hormone replacement therapy; Z86.718 Personal history of other venous thrombosis and embolism; Z79.899 Other long term (current) drug therapy; Z87.442 Personal history of urinary calculi; Z86.14 Personal history of Methicillin resistant Staphylococcus aureus infection; Z96.652 Presence of left artificial knee joint; Z88.6 Allergy status to analgesic agent; Z87.19 Personal history of other diseases of the digestive system; L29.9 Pruritus, unspecified
CPT/HCPCS: 36415; 70450; 70496; 70498; 71046; 80053; 82550; 84484; 85025; 85610; 85730; 93005; 96374; 99291

== ENCOUNTER → 2023-09-24 | Outpatient (CLI) | payer MEDICARE, OTHER ==
--- NOTE | 2023-09-24 15:08 | US ---
EXAMINATION TYPE: US venous doppler duplex LE DATE OF EXAM: 09/24/2023 12:48 PM COMPARISON: NONE CLINICAL INDICATION: Male, 68 years old with history of Z86.715 PERSONAL HISTORY OF OTHER VENOUS THRO MBOSI; edema right ankle. history of DVT right leg SIDE PERFORMED: bilateral TECHNIQUE: The lower extremity deep venous system is examined utilizing real time linear array sonog diana with graded compression, doppler sonography and color-flow sonography. VESSELS IMAGED: Common Femoral Vein Deep Femoral Vein Greater Saphenous Vein * Femoral Vein Popliteal Vein Small Saphenous Vein * Proximal Calf Veins (* superficial vessels) The deep venous systems of both lower extremities from the common femoral remains to the proximal yoav f veins are patent and compressible with augmentable flow and with normal waveforms. IMPRESSION: No evidence of bilateral lower extremity DVT from the common femoral veins to the proximal calf veins
== END | disposition home or self-care (01) ==
LOC: RADUSWWP 11:48
PROVIDERS: ATTEND Family Medicine
DX: R60.0 Localized edema (principal); Z86.718 Personal history of other venous thrombosis and embolism
CPT/HCPCS: 93970

== ENCOUNTER 2024-08-02 18:37 | Emergency (ER) | payer MEDICARE, OTHER ==
[2024-08-02 18:44] VITALS: TEMP 97.5
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
[2024-08-02] MEDS: MORPHINE SULFATE 2 MG/ML SYRINGE IM STA (20:34)
[2024-08-02] MEDS: ACETAMINOPHEN TAB 500 MG TAB PO STA (20:37)
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
[2024-08-02] MEDS: ACET/COD 300 MG/30 MG STARTER PACK 6 TAB BTL PO STA (21:05)
[2024-08-02 21:08] VITALS: BP 129/84; PULSE 77; RESP 17
== END 2024-08-02 21:08 | disposition home or self-care (01) ==
LOC: EC 18:37
DX: S09.90XA Unspecified injury of head, initial encounter (principal); M54.2 Cervicalgia; Z88.6 Allergy status to analgesic agent; V43.52XA Car driver injured in collision with other type car in traffic accident, initial encounter
CPT/HCPCS: 72125; 70450; 99284; 96372; J2270